=== PATIENT | male | born 1930 | race Caucasian/White ===

== ENCOUNTER 2017-02-15 13:53 | Emergency (ER) | payer MEDICARE ==
[2017-02-15 14:16] VITALS: BP 127/83; PULSE 69; RESP 16; TEMP 98.1
--- NOTE | 2017-02-15 14:35 | ED ---
General Adult HPI - General Chief complaint: Psychiatric Symptoms Stated complaint: Suicidal Time Seen by Provider: 02/15/17 14:33 Source: EMS, RN notes reviewed, old records reviewed Mode of arrival: EMS Limitations: no limitations - History of Present Illness Initial comments: This is an 86-year-old male in the ER for evaluation. Patient presents today for evaluation of sinus infection Niki nose cough and congestion. Patient has no other issues. Patient was sent to ER from urgent care for possible thoughts of grief and loss. Patient does admit to losing his a week ago and states he has been depressed. He does not want to kill himself is not suicidal denies drugs or alcohol abuse. Patient denies fevers no chest pain or shortness of breath. He was to cough and congestion, runny nose and stuffy nose. Review of Systems ROS Statement: Those systems with pertinent positive or pertinent negative responses have been documented in the HPI. ROS Other: All systems not noted in ROS Statement are negative. Past Medical History Past Medical History: No Reported History History of Any Multi-Drug Resistant Organisms: None Reported Past Surgical History: No Surgical Hx Reported Past Psychological History: No Psychological Hx Reported Smoking Status: Never smoker Past Alcohol Use History: Occasional Past Drug Use History: None Reported General Exam Limitations: no limitations General appearance: alert, in no apparent distress Head exam: Present: atraumatic, normocephalic, normal inspection Eye exam: Present: normal appearance, PERRL, EOMI. Absent: scleral icterus, conjunctival injection, periorbital swelling ENT exam: Present: normal exam, mucous membranes moist Neck exam: Present: normal inspection. Absent: tenderness, meningismus, lymphadenopathy Respiratory exam: Present: normal lung sounds bilaterally. Absent: respiratory distress, wheezes, rales, rhonchi, stridor Cardiovascular Exam: Present: regular rate, normal rhythm, normal heart sounds. Absent: systolic murmur, diastolic murmur, rubs, gallop, clicks GI/Abdominal exam: Present: soft, normal bowel sounds. Absent: distended, tenderness, guarding, rebound, rigid Extremities exam: Present: normal inspection, full ROM, normal capillary refill. Absent: tenderness, pedal edema, joint swelling, calf tenderness Back exam: Present: normal inspection Neurological exam: Present: alert, oriented X3, CN II-XII intact Psychiatric exam: Present: normal affect, normal mood Skin exam: Present: warm, dry, intact, normal color. Absent: rash Course Vital Signs 02/15/17 14:08 Temperature 98.1 F Pulse Rate 69 Respiratory 16 Rate Blood Pressure 127/83 O2 Sat by Pulse 97 Oximetry - Reevaluation(s) Reevaluation #1: 02/15/17 15:04 Patient's in no acute distress Medical Decision Making - Medical Decision Making 86 male year for evaluation of runny nose cough and congestion, patient given treatment for sinusitis, not homicidal or suicidal, no chest pain or shortness of breath. Patient can be discharged home Disposition Clinical Impression: Grief, Sinusitis Disposition: HOME SELF-CARE Condition: Good Instructions: Sinusitis (ED), Grief and Loss (ED) Referrals: None,Stated [Primary Care Provider] - 1-2 days
== END 2017-02-15 15:12 | disposition home or self-care (01) ==
LOC: EC 13:53
DX: F43.21 Adjustment disorder with depressed mood (principal); J32.9 Chronic sinusitis, unspecified; F32.9 Major depressive disorder, single episode, unspecified
CPT/HCPCS: 99284

== ENCOUNTER 2017-02-16 14:42 | Inpatient (IN) | payer MEDICARE, OTHER ==
[2017-02-16] MEDS ORDERED: SODIUM CHLORIDE 0.9% 500 ML IV STA (15:28)
--- NOTE | 2017-02-16 15:30 | ED ---
General Adult HPI - General Chief complaint: Upper Respiratory Infection Stated complaint: Fever Time Seen by Provider: 02/16/17 15:12 Source: patient, RN notes reviewed Mode of arrival: wheelchair Limitations: no limitations - History of Present Illness Initial comments: Patient's an 86-year-old male who presents emergency room today with a chief complaint of some symptoms of nausea over the past week. He states his symptoms started a week ago after his 's . He states she's feeling somewhat depressed. He states feels that it is better if he was not here. He states he is not having any thoughts of hurting himself. He states he is not suicidal. He states he has no family here in [place]. States remaining families down in [place]. Patient does admit that he's had a mild cough and was seen here in the emergency room yesterday. States she's been talking to his son on the phone and feels that he is congested and they feel that he should have an antibiotic for this. Patient denies any other complaints or symptoms at this time. Patient denies any recent fever, chills, shortness of breath, chest pain, back pain, abdominal pain, nausea or vomiting, numbness or tingling, dysuria or hematuria, constipation or diarrhea, headaches or visual changes, or any other complaints. - Related Data Home Medications Medication Instructions Recorded Confirmed Azithromycin [Zithromax Z-pack] See Taper PO DAILY 02/16/17 02/16/17 Allergies Allergy/AdvReac Type Severity Reaction Status Date / Time No Known Allergies Allergy Verified 02/16/17 16:45 Review of Systems ROS Statement: Those systems with pertinent positive or pertinent negative responses have been documented in the HPI. ROS Other: All systems not noted in ROS Statement are negative. Past Medical History Past Medical History: No Reported History Additional Past Medical History / Comment(s): hearing imparied History of Any Multi-Drug Resistant Organisms: None Reported Past Surgical History: No Surgical Hx Reported Past Psychological History: No Psychological Hx Reported Smoking Status: Never smoker Past Alcohol Use History: Occasional Past Drug Use History: None Reported General Exam - General Exam Comments Initial Comments: General: The patient is awake and alert, in no distress, and does not appear acutely ill. Eye: Pupils are equal, round and reactive to light, extra-ocular movements are intact. No nystagmus. There is normal conjunctiva bilaterally. No signs of icterus. Ears, nose, mouth and throat: There are moist mucous membranes and no oral lesions. Neck: The neck is supple, there is no tenderness or JVD. Cardiovascular: There is a regular rate and rhythm. No murmur, rub or gallop is appreciated. Respiratory: Lungs are clear to auscultation, respirations are non-labored, breath sounds are equal. No wheezes, stridor, rales, or rhonchi. Gastrointestinal: Soft, non-distended, non-tender abdomen without masses or organomegaly noted. There is no rebound or guarding present. No CVA tenderness. Bowel sounds are unremarkable. Musculoskeletal: Normal ROM, no tenderness. Strength 5/5. Sensation intact. Pulses equal bilaterally 2+. Neurological: A&O x 3. CN II-XII intact, There are no obvious motor or sensory deficits. Coordination appears grossly intact. Speech is normal. Skin: Skin is warm and dry and no rashes or lesions are noted. Psychiatric: Cooperative, appropriate mood & affect, normal judgment. Limitations: no limitations Course Vital Signs 02/16/17 02/16/17 02/16/17 14:43 15:17 16:41 Temperature 97.5 F L 100.2 F H 101.1 F H Pulse Rate 84 Respiratory 18 Rate Blood Pressure 153/67 O2 Sat by Pulse 95 Oximetry Medical Decision Making - Medical Decision Making Patient reexamined at this time shows no signs of distress. Does have a low- grade fever that begun here in the emergency room the 101.1F. Given Tylenol by mouth. Patient's chest x-rays negative. He does admit that he's had a little bit of a head cold. He does admit that he's had some nausea over the last week. Patient's urinalysis and blood work reviewed. No sign of infection but sodium low at 117. Patient states unaware of any history of this. Patient will be given dose of broad-spectrum antibiotics of Rocephin to cover for infection as there is no source at this time. Patient will be admitted for hypernatremia. Case was discussed in detail with attending physician Dr. Rojo. - Lab Data Result diagrams: 02/16/17 16:00 02/16/17 16:00 Lab Results 05/27/17 05/27/17 05/27/17 Range/Units 16:00 16:00 16:00 WBC 8.5 (3.8-10.6) k/uL RBC 4.58 (4.30-5.90) m/uL Hgb 14.1 (13.0-17.5) gm/dL Hct 39.4 (39.0-53.0) % MCV 86.0 (80.0-100.0) fL MCH 30.9 (25.0-35.0) pg MCHC 35.9 (31.0-37.0) g/dL RDW 13.3 (11.5-15.5) % Plt Count 217 (150-450) k/uL Neutrophils % 84 % Lymphocytes % 7 % Monocytes % 6 % Eosinophils % 2 % Basophils % 0 % Neutrophils # 7.1 (1.3-7.7) k/uL Lymphocytes # 0.6 L (1.0-4.8) k/uL Monocytes # 0.5 (0-1.0) k/uL Eosinophils # 0.1 (0-0.7) k/uL Basophils # 0.0 (0-0.2) k/uL PT 11.0 (9.0-12.0) sec INR 1.1 (<1.1) APTT 26.1 (22.0-30.0) sec Sodium 117 L* (137-145) mmol/L Potassium 4.3 (3.5-5.1) mmol/L Chloride 86 L (98-107) mmol/L Carbon Dioxide 24 (22-30) mmol/L Anion Gap 7 mmol/L BUN 10 (9-20) mg/dL Creatinine 0.70 (0.66-1.25) mg/dL Est GFR (MDRD) Af Amer >60 (>60 ml/min/1.73 sqM) Est GFR (MDRD) Non-Af >60 (>60 ml/min/1.73 sqM) Glucose 99 (74-99) mg/dL Calcium 8.6 (8.4-10.2) mg/dL Total Bilirubin 1.7 H (0.2-1.3) mg/dL AST 37 (17-59) U/L ALT 36 (21-72) U/L Alkaline Phosphatase 270 H (38-126) U/L Total Protein 6.3 (6.3-8.2) g/dL Albumin 3.8 (3.5-5.0) g/dL Urine Color Urine Appearance (Clear) Urine pH (5.0-8.0) Ur Specific [place] (1.001-1.035) Urine Protein (Negative) Urine Glucose (UA) (Negative) Urine Ketones (Negative) Urine Blood (Negative) Urine Nitrite (Negative) Urine Bilirubin (Negative) Urine Urobilinogen (<2.0) mg/dL Ur Leukocyte Esterase (Negative) Urine RBC (0-5) /hpf Urine WBC (0-5) /hpf Urine Mucus (None) /hpf Urine Opiates Screen (NotDetected) Ur Oxycodone Screen (NotDetected) Urine Methadone Screen (NotDetected) Ur Propoxyphene Screen (NotDetected) Ur Barbiturates Screen (NotDetected) U Tricyclic Antidepress (NotDetected) Ur Phencyclidine Scrn (NotDetected) Ur Amphetamines Screen (NotDetected) U Methamphetamines Scrn (NotDetected) U Benzodiazepines Scrn (NotDetected) Urine Cocaine Screen (NotDetected) U Marijuana (THC) Screen (NotDetected) 02/16/17 02/16/17 Range/Units 16:55 16:55 WBC (3.8-10.6) k/uL RBC (4.30-5.90) m/uL Hgb (13.0-17.5) gm/dL Hct (39.0-53.0) % MCV (80.0-100.0) fL MCH (25.0-35.0) pg MCHC (31.0-37.0) g/dL RDW (11.5-15.5) % Plt Count (150-450) k/uL Neutrophils % % Lymphocytes % % Monocytes % % Eosinophils % % Basophils % % Neutrophils # (1.3-7.7) k/uL Lymphocytes # (1.0-4.8) k/uL Monocytes # (0-1.0) k/uL Eosinophils # (0-0.7) k/uL Basophils # (0-0.2) k/uL PT (9.0-12.0) sec INR (<1.1) APTT (22.0-30.0) sec Sodium (137-145) mmol/L Potassium (3.5-5.1) mmol/L Chloride (98-107) mmol/L Carbon Dioxide (22-30) mmol/L Anion Gap mmol/L BUN (9-20) mg/dL Creatinine (0.66-1.25) mg/dL Est GFR (MDRD) Af Amer (>60 ml/min/1.73 sqM) Est GFR (MDRD) Non-Af (>60 ml/min/1.73 sqM) Glucose (74-99) mg/dL Calcium (8.4-10.2) mg/dL Total Bilirubin (0.2-1.3) mg/dL AST (17-59) U/L ALT (21-72) U/L Alkaline Phosphatase (38-126) U/L Total Protein (6.3-8.2) g/dL Albumin (3.5-5.0) g/dL Urine Color Yellow Urine Appearance Clear (Clear) Urine pH 6.5 (5.0-8.0) Ur Specific [place] 1.009 (1.001-1.035) Urine Protein Negative (Negative) Urine Glucose (UA) Negative (Negative) Urine Ketones 1+ H (Negative) Urine Blood Small H (Negative) Urine Nitrite Negative (Negative) Urine Bilirubin Negative (Negative) Urine Urobilinogen 2.0 (<2.0) mg/dL Ur Leukocyte Esterase Trace H (Negative) Urine RBC 4 (0-5) /hpf Urine WBC 1 (0-5) /hpf Urine Mucus Rare H (None) /hpf Urine Opiates Screen Not Detected (NotDetected) Ur Oxycodone Screen Not Detected (NotDetected) Urine Methadone Screen Not Detected (NotDetected) Ur Propoxyphene Screen Not Detected (NotDetected) Ur Barbiturates Screen Not Detected (NotDetected) U Tricyclic Antidepress Not Detected (NotDetected) Ur Phencyclidine Scrn Not Detected (NotDetected) Ur Amphetamines Screen Not Detected (NotDetected) U Methamphetamines Scrn Not Detected (NotDetected) U Benzodiazepines Scrn Not Detected (NotDetected) Urine Cocaine Screen Not Detected (NotDetected) U Marijuana (THC) Screen Not Detected (NotDetected) Disposition Clinical Impression: Hyponatremia, Fever Disposition: ADMITTED IP TO THIS [facility] Condition: Stable Referrals: None,Stated [Primary Care Provider] - 1-2 days Time of Disposition: 17:15
[2017-02-16 16:14] LABS: Basophils % (A) 0 %; CH 31.6; CHCM 36.8; Eosinophils # (A) 0.1 k/uL (0-0.7); Eosinophils % (A) 2 %; HCT 39.4 % (39.0-53.0); HDW 2.46; HGB 14.1 gm/dL (13.0-17.5); Luc # (Auto) 0.11; Luc % (Auto) 1; Lymphocytes # (A) 0.6 k/uL (1.0-4.8); Lymphocytes % (A) 7 %; MCH 30.9 pg (25.0-35.0); MCHC 35.9 g/dL (31.0-37.0); Mean Platelet Volume 6.7; Monocytes # (A) 0.5 k/uL (0-1.0); Monocytes % (A) 6 %; Neutrophils # (A) 7.1 k/uL (1.3-7.7); Neutrophils % (A) 84 %; RBC 4.58 m/uL (4.30-5.90); RDW 13.3 % (11.5-15.5); WBC 8.5 k/uL (3.8-10.6); WBC (Perox) 8.26
[2017-02-16 16:23] LABS: ALT 36 U/L (21-72); AST 37 U/L (17-59); Alkaline Phosphatase 270 U/L (38-126); Anion Gap 7 mmol/L; Blood Urea Nitrogen 10 mg/dL (9-20); Calcium 8.6 mg/dL (8.4-10.2); Carbon Dioxide 24 mmol/L (22-30); Chloride 86 mmol/L (98-107); Glucose 99 mg/dL (74-99); Non-African American GFR(MDRD) >60 (>60 ml/min/1.73 sqM); Potassium 4.3 mmol/L (3.5-5.1); Total Bilirubin 1.7 mg/dL (0.2-1.3); Total Protein 6.3 g/dL (6.3-8.2)
[2017-02-16 16:24] LABS: Sodium 117 mmol/L (137-145)
--- NOTE | 2017-02-16 16:28 | XR ---
EXAMINATION TYPE: XR chest 2V DATE OF EXAM: 02/16/2017 COMPARISON: NONE HISTORY: Cough TECHNIQUE: Frontal and lateral views of the chest are obtained on 4 images. FINDINGS: There is no focal air space opacity, pleural effusion, or pneumothorax seen. There are cor onary artery calcifications. There are prominent lung volumes. The cardiac silhouette size is within normal limits. The osseous structures are intact. IMPRESSION: No acute cardiopulmonary process.
[2017-02-16 16:33] LABS: INR 1.1 (<1.1); Partial Thromboplastin Time 26.1 sec (22.0-30.0)
[2017-02-16] MEDS ORDERED: ACETAMINOPHEN TAB 500 MG TAB PO STA (16:46)
[2017-02-16] MEDS ORDERED: SODIUM CHLORIDE 0.9% 1,000 ML IV STA ×3 (16:47→18:28)
[2017-02-16 17:05] LABS: Appearance,Urine Clear (Clear); Bilirubin,Urine Negative (Negative); Glucose,Urine (UA) Negative (Negative); Ketones,Urine 1+ (Negative); Leukocyte Esterase,Urine Trace (Negative); Mucus,Urine Rare /hpf; Nitrite,Urine Negative (Negative); PH, Urine 6.5 (5.0-8.0); Particle Count 2496; Protein,Urine Negative (Negative); RBC,Urine 4 /hpf (0-5); Specific Gravity,Urine 1.009 (1.001-1.035); UA Billing (MACRO vs. MICRO) MICRO; WBC,Urine 1 /hpf (0-5)
[2017-02-16] MEDS ORDERED: ACETAMINOPHEN TAB 325 MG TAB PO PRN (17:37)
[2017-02-16] MEDS ORDERED: ONDANSETRON 4 MG/2 ML VIAL IVP PRN (17:37)
[2017-02-16] MEDS ORDERED: LORazepam 2 MG/ML SYRINGE IV PRN (17:37)
[2017-02-16] MEDS ORDERED: NALOXONE 0.4 MG/ML 1 ML VIAL IV PRN (17:37)
[2017-02-16] MEDS ORDERED: SODIUM CHLORIDE 0.9% 1,000 ML IV ONE (17:37)
[2017-02-16] MEDS ORDERED: TEMAZEPAM 15 MG CAP PO PRN (21:38)
[2017-02-16] MEDS ORDERED: ALPRAZolam 0.25 MG TAB PO PRN (21:38)
[2017-02-16] MEDS: ESCITALOPRAM 10 MG TAB PO SCH (23:39)
[2017-02-17] MEDS: SODIUM CHLORIDE 0.9% 1,000 ML IV SCH ×2 (05:37→14:27)
[2017-02-17 07:26] LABS: Basophils % (A) 0 %; CH 31.4; CHCM 36.6; Eosinophils # (A) 0.2 k/uL (0-0.7); Eosinophils % (A) 3 %; HCT 37.5 % (39.0-53.0); HDW 2.52; HGB 13.7 gm/dL (13.0-17.5); Luc # (Auto) 0.16; Luc % (Auto) 2; Lymphocytes # (A) 1.1 k/uL (1.0-4.8); Lymphocytes % (A) 13 %; MCH 31.2 pg (25.0-35.0); MCHC 36.4 g/dL (31.0-37.0); MCV 85.9 fL (80.0-100.0); Mean Platelet Volume 6.5; Monocytes # (A) 0.5 k/uL (0-1.0); Monocytes % (A) 6 %; Neutrophils # (A) 6.5 k/uL (1.3-7.7); Neutrophils % (A) 76 %; RBC 4.37 m/uL (4.30-5.90); RDW 13.4 % (11.5-15.5); WBC 8.5 k/uL (3.8-10.6); WBC (Perox) 8.53
[2017-02-17 07:37] LABS: ALT 29 U/L (21-72); AST 33 U/L (17-59); Alkaline Phosphatase 250 U/L (38-126); Anion Gap 6 mmol/L; Blood Urea Nitrogen 7 mg/dL (9-20); Calcium 8.3 mg/dL (8.4-10.2); Carbon Dioxide 23 mmol/L (22-30); Chloride 93 mmol/L (98-107); Glucose 93 mg/dL (74-99); Non-African American GFR(MDRD) >60 (>60 ml/min/1.73 sqM); Potassium 4.1 mmol/L (3.5-5.1); Sodium 122 mmol/L (137-145); Total Bilirubin 1.4 mg/dL (0.2-1.3); Total Protein 6.2 g/dL (6.3-8.2)
[2017-02-17] MEDS: PANTOPRAZOLE 40 MG TABLET PO SCH (08:30)
[2017-02-17] MEDS: HEPARIN SODIUM,PORCINE 5,000 UNIT/ML 1 ML VIAL SQ SCH ×2 (09:05→20:06)
--- NOTE | 2017-02-17 12:25 | HP ---
DATE OF ADMISSION: CHIEF COMPLAINT: Weakness and hyponatremia. HISTORY OF PRESENT ILLNESS: This 86-year-old gentleman with a past medical history of no significant medical issues except hard of hearing, not being followed by primary care physician in the outpatient setting, was recently moved to [facility]. The patient apparently lost his who last week because of multiple complex medical issues and patient became sick, devastated and depressed. Patient apparently not eating well. The patient complains of weakness and tiredness. The patient went to [facility] and was admitted for further evaluation and treatment. Evaluation showed severe hyponatremia at 117. There is no history of fever, rigors. No history of headache, loss of consciousness, seizures at this time. The family is also concerned about the safety aspects also. PAST MEDICAL HISTORY: No significant cardiorespiratory illness. History of hard of hearing. Medications prior to admission include Zithromax taper. ALLERGIES: None. FAMILY HISTORY: History of hypertension. SOCIAL HISTORY: No history of smoking. No history of alcohol intake. Patient used to be a contractor. REVIEW OF SYSTEMS: ENT: Diminished vision, diminished hearing. The patient uses hearing aid. CARDIOVASCULAR: No angina, palpitations. RESPIRATORY: No cough. GI: No nausea. : No dysuria. NERVOUS SYSTEM: No numbness or weakness. ALLERGY/IMMUNOLOGY: No asthma or hayfever. MUSCULOSKELETAL: As mentioned earlier. HEMATOLOGY: No history of anemia. ENDOCRINE: No history of diabetes or hypothyroidism. CONSTITUTIONAL: As mentioned earlier. DERMATOLOGY: Negative. RHEUMATOLOGY: Negative. PSYCHIATRY: As mentioned earlier. PHYSICAL EXAMINATION: Patient is alert and oriented x3. Pulse is 70, blood pressure 154/81, respirations 16, temperature 97.9, pulse ox is 93% on room air. T-max 101.1. HEENT: Conjunctivae normal. Oral mucosa moist. NECK: No jugular venous distention. No carotid bruit. No lymph node enlargement. CARDIOVASCULAR: S1, S2. No S3, no S4. RESPIRATORY: Breath sounds diminished at the bases. No rhonchi, no crackles. ABDOMEN: Soft, nontender. No mass palpable. No hepatosplenomegaly. No ascites. LEGS: No edema, no swelling. NERVOUS SYSTEM: Higher function as mentioned. Moves all four limbs. No focal motor deficits. LYMPHATIC: No lymphadenopathy in the neck, axillae or groin. SKIN: No ulcer, rash or bleeding. JOINTS: No active deforming arthropathy. LABS: CBC within normal limits. INR 1.1. Sodium is 117, chloride is 86, total bilirubin is 1.7. UA noted. Drug screen is negative. The chest x-ray, no acute cardiopulmonary process. ASSESSMENT: 1. Severe hyponatremia possibly hypovolemic secondary to diminished p.o. intake. 2. Fever for evaluation. 3. Hypochloremia. 4. Increased bilirubin. 5. Increased alkaline phosphatase. 6. Hard of hearing. 7. FULL CODE. 8. Depression. RECOMMENDATIONS AND DISCUSSION: In is 86-year-old gentleman with a past medical history of multiple medical problems, will monitor the patient closely. Continue the current medications, continue the symptomatic treatment. Otherwise, at this time I recommend IV fluids at 100 mL/h. Monitor sodium closely. Encourage p.o. fluids and PT, OT evaluation and as well as for evaluation of gait dysfunction. Case management consultation regarding the home situation. Repeat labs will be ordered. Guarded prognosis because of multiple complex medical issues. Further recommendations to follow. I will also recommend the patient follow up with the primary physician in the outpatient setting also. See orders for further details. Discussed with the patient who understands and agrees. Will obtain set of cultures also.
[2017-02-17 12:40] VITALS: BMI 27.1
--- NOTE | 2017-02-17 16:39 | P.CN ---
Psychiatric Consult - . Consult:: Date of consultation: 02/17/2017 Reason for consultation: Depression Identifying data and history of present illness: The patient is a 86-year-old male who has been admitted to the medical floor because of hyponatremia and fever. The primary team consulted to rule out depression. As per the primary team the patient developed a complex medical issues and became sick devastated and depressed. Also it has been reported that the patient was not eating well and he complains of weakness and tiredness. His serum sodium was 117. There is no history of fever, headache, loss of consciousness, seizures, or any other medical problems. It has been addressed at that the family are concerned about the patient's safety. Patient was seen today for about 30 minutes. He denies any symptoms of depression including depressed mood, lack of motivation, hopelessness, sleep or appetite disturbances. The patient denies symptoms of anxiety including apprehension, racing thoughts, muscle tension, or panic attacks. The patient reported that he he feels frustrated and a little irritable because he still at the hospital and he wants to leave the hospital to go back to his life. The patient stated that he is frustrated because he is in the hospital and people talking too fast and he couldn't hear them well. Patient reports he used to cook for himself and taking care of all of his ADLs but for the past few months he was very busy visiting his in the hospital and responding to many forms about her disease and insurance besides his hearing aid is not functioning properly so he couldn't eat well as he used to do and that probably caused him to have sodium problem. Patient denies any thoughts, intentions or plans to hurt himself or end his life. The patient reported his one week ago and he feels sad about that but he was prepared because she was sick and at the hospital. The patient stated that he wanted to continue the rest of his life in peace and he feels healthy and capable of taking care of himself. Patient reported always has a very good sleep about 8 hours a night and he denies most appetite and he would eat as long as he had to time to prepare the food for himself. Patient reported that the plan is to go to stay with his son in [place] after discharge from the hospital. Past psychiatric history: The patient denies any history of psychiatric diagnosis, hospitalization, or treatment Substance use history: The patient denies any history of alcohol or substance use disorder Past medical history: No significant history of medical problems besides hard hearing and he is using hearing aids ALLERGY: No known drug ALLERGY Home medications: No home medications reported Family history of psychiatric illness: no family history of mental illness, suicidal, or substance use disorder reported Brief social history: The patient is 86-year-old, currently lives by himself after his one week ago. He reported has been for 35 years. He is currently retired and he used to work in construction. Mental status examination: Appearance: The patient appears his stated age, dressed in hospital gown, was seen in his bed Gait and posture: The patient was seen in his bed, no abnormal movements noticed Attitude and behavior: Patient was fully engaged, cooperative, was fair eye contact. Patient has difficulty to hear and I have to repeat this statement times No psychomotor agitation noticed The mood: Frustrated Affect: Full congruent to the mood Thought form: Preoccupied with discharge but linear and coherent Thought content: Non-delusional, denies suicidal or homicidal patient, intention or plan Perception: Denies any auditory or visual hallucinations Attention: No impairment. Orientation: Patient was fully oriented to time place person and situation. Insight: Patient has fair insight about his medical problems and his current symptoms Judgment: Patient has fair judgment about his treatment. Assessment: Adjustment disorder with anxious mood Grief Recommendations: Patient doesn't have criteria for depressive disorder or anxiety disorder. The patient might benefit from counseling and psychological support to address his adjustment with the loss of his . Range with the family for safe discharge. PT and or OT to assess patient for ability to take care of his ADLs 02/17/17 15:53 02/17/17 16:18
[2017-02-17] MEDS: ESCITALOPRAM 10 MG TAB PO SCH (20:06)
[2017-02-18] MEDS: SODIUM CHLORIDE 0.9% 1,000 ML IV SCH (05:47)
[2017-02-18 07:09] LABS: Anion Gap 5 mmol/L; Blood Urea Nitrogen 6 mg/dL (9-20); Calcium 8.2 mg/dL (8.4-10.2); Carbon Dioxide 24 mmol/L (22-30); Chloride 89 mmol/L (98-107); Glucose 92 mg/dL (74-99); Non-African American GFR(MDRD) >60 (>60 ml/min/1.73 sqM); Potassium 3.8 mmol/L (3.5-5.1)
[2017-02-18 07:12] LABS: Sodium 118 mmol/L (137-145)
[2017-02-18 07:26] LABS: Basophils % (A) 0 %; CH 31.7; CHCM 36.8; Eosinophils # (A) 0.2 k/uL (0-0.7); Eosinophils % (A) 3 %; HCT 34.3 % (39.0-53.0); HDW 2.55; Luc # (Auto) 0.16; Luc % (Auto) 3; Lymphocytes # (A) 0.6 k/uL (1.0-4.8); Lymphocytes % (A) 10 %; MCH 30.2 pg (25.0-35.0); MCHC 34.9 g/dL (31.0-37.0); MCV 86.4 fL (80.0-100.0); Mean Platelet Volume 6.5; Monocytes # (A) 0.6 k/uL (0-1.0); Monocytes % (A) 10 %; Neutrophils # (A) 4.6 k/uL (1.3-7.7); Neutrophils % (A) 75 %; RBC 3.97 m/uL (4.30-5.90); RDW 13.4 % (11.5-15.5); WBC 6.1 k/uL (3.8-10.6); WBC (Perox) 6.34
[2017-02-18] MEDS: HEPARIN SODIUM,PORCINE 5,000 UNIT/ML 1 ML VIAL SQ SCH ×2 (09:03→20:03)
[2017-02-18] MEDS: PANTOPRAZOLE 40 MG TABLET PO SCH (09:03)
--- NOTE | 2017-02-18 09:21 | PN ---
DATE OF SERVICE: 02/17/2017 This 86-year-old gentleman was admitted with weakness and diminished p.o. intake for the last several days, had severe hyponatremia. Patient apparently lost his recently and has been depressed ever since. Psychiatry has seen the patient and recommended to have an adjustment disorder with anxious mood and grief. No chest pain, no palpitation. No fever. On exam, alert and oriented x3. Pulse is 67, blood pressure 129/61, respirations 18, temperature 98 degrees, pulse ox 95% on room air. HEENT: Conjunctivae normal. NECK: No jugular venous distention. CARDIOVASCULAR: S1 and S2, muffled. RESPIRATORY: Breath sounds diminished at the bases. No rhonchi, no crackles. ABDOMEN: Soft, nontender. LEGS: No edema, no swelling. NERVOUS SYSTEM: Higher function as mentioned. Moves all four limbs. No focal motor deficits. LYMPHATIC: No lymphadenopathy in the neck, axillae or groin. SKIN: No ulcer, rash or bleeding. LABS: CBC within normal. Sodium 122 and total bilirubin is 1.4, albumin 3.4. UA noted. ASSESSMENT: 1. Severe hyponatremia, possibly secondary to hypovolemia secondary to diminished p.o. intake. 2. Fever for evaluation, improved. 3. Hypochloremia. 4. Increased bilirubin. 5. Increased alkaline phosphatase. 6. Hard of hearing. 7. Adjustment disorder with grief reaction. 8. FULL CODE. RECOMMENDATIONS AND DISCUSSION: In this 86-year-old gentleman who presented with multiple complex medical issues, we will monitor the patient closely, continue the current medications and symptomatic treatment. Otherwise, at this time I recommend to continue with IV hydration. Monitor sodium closely. Psychiatry input appreciated. Otherwise, guarded prognosis because of multiple complex medical issues and cultures are negative so far. Further recommendations to follow. skip pit worker and family independence case manager to follow the home situation.
--- NOTE | 2017-02-18 14:36 | P.NPCON ---
History of Present Illness - Reason for Consult hyponatremia - History of Present Illness Patient is a 86-year-old white male admitted to the hospital with complaints of extreme weakness fatigue feeling congested with some headaches. On admission he was noted to have a serum sodium of 117 mEq per liter. Patient did receive IV fluids and his serum sodium went up to 122 after which it went down back to 1 18 mg/L. His serum creatinine has been 0.7-0.5 mg/dL. Patient denies any prior history of hyponatremia. There is no significant pain. Urine osmolality and random urine sodium has been ordered and it is currently pending. BP has been 129-158 mmHg for systolic and diastolic at 68-74 mmHg. Review of Systems As per HPI other systems negative Past Medical History Past Medical History: No Reported History Additional Past Medical History / Comment(s): hearing imparied History of Any Multi-Drug Resistant Organisms: None Reported Past Surgical History: No Surgical Hx Reported Past Psychological History: No Psychological Hx Reported Smoking Status: Never smoker Past Alcohol Use History: Occasional Past Drug Use History: None Reported - Past Family History Father Family Medical History: Hypertension Mother Family Medical History: Hypertension Medications and Allergies Home Medications Medication Instructions Recorded Confirmed Type Azithromycin [Zithromax Z-pack] See Taper PO DAILY 02/16/17 02/16/17 History Allergies Allergy/AdvReac Type Severity Reaction Status Date / Time No Known Allergies Allergy Verified 02/16/17 16:45 Physical Exam Vitals: Vital Signs Temp Pulse Resp BP Pulse Ox 02/18/17 14:08 97.5 F L 73 18 168/77 94 L 02/18/17 07:00 98 F 67 16 129/57 93 L 02/17/17 21:57 98.7 F 71 16 133/68 95 02/17/17 16:00 79 18 02/17/17 15:00 98.0 F 79 18 158/74 95 Intake and Output 02/17/17 02/18/17 02/18/17 22:59 06:59 14:59 Intake Total 600 800 Output Total 800 800 300 Balance -200 0 -300 Intake: IV 300 800 Sodium Chloride 0.9% 1, 300 800 000 ml @ 100 mls/hr IV . Q10H LARA Rx#:[id number] Oral 300 Output: Urine 800 800 300 Other: Voiding Method Toilet Toilet Urinal Urinal # Voids 2 3 Weight 88.451 kg 88.451 kg Patient is comfortable awake is not in any acute distress. Blood pressure is 168/77 Heart rate 73/m. He is afebrile [place] examination of the heart S1 and S2 Examination lungs bilateral breath sounds are heard no crackles or wheezing is heard Abdomen is soft nontender Examination lower extremities shows no significant edema. Lab is grossly intact. Patient is moving all 4 extremities. Results - Lab Results Most recent lab results Calcium 8.2 mg/dL (8.4-10.2) L 02/18/17 06:25 02/18/17 06:25 02/18/17 06:25 Assessment and Plan Plan: Assessment 1. Hyponatremia appears to be euvolemic. Serum sodium worsened with normal saline administration suggesting high likelihood of SIADH. I will hold off on the normal saline for now and repeat another sodium level. Urine osmolality and random urine sodium is currently pending. Patient will be maintained on fluid restriction. 2. Adjustment disorder with anxious mood, status post evaluation by psychiatry as patient just lost his about 2 weeks ago. 3. Hypertension with regional high blood pressure readings. We'll continue to follow for now. At this time patient is not on any antihypertensive medications. Plan Hold off on IV fluids. Check random urine sodium and urine osmolality. Repeat serum sodium now. Maintain patient on fluid restriction. And increase oral intake Thank you for this consultation we'll continue to follow the patient with you during his hospitalization
[2017-02-18] MEDS ORDERED: FUROSEMIDE 10 MG/ML 2 ML VIAL IV ONE (16:11)
[2017-02-18] MEDS: ESCITALOPRAM 10 MG TAB PO SCH (20:03)
[2017-02-19] MEDS ORDERED: SODIUM CHLORIDE TAB 1 GM TAB PO STA (04:58)
--- NOTE | 2017-02-19 06:54 | PN ---
DATE OF SERVICE: 02/18/2017 This 86-year-old gentleman was admitted with severe hyponatremia, possibly thought to be secondary to hypovolemic hyponatremia. Sodium is 117 improved to 122 with 0.9 normal saline, but currently once again dropped to 118. Creatinine is within normal limits. Dr. Fitch was consulted and the possibility of SIADH is considered because of lack of consistent lack of improvement with 0.9 even though it improved initially. Repeat sodium was recommended by Dr. Fitch. Otherwise, the patient is closely monitored. PAST MEDICAL HISTORY: Reviewed. REVIEW OF SYSTEMS: CARDIOVASCULAR: No angina. RESPIRATORY: As mentioned earlier. GI: As mentioned earlier. GENITOURINARY: No dysuria. NERVOUS SYSTEM: No numbness. Current medications are reviewed and include: 1. Tylenol 650 q.6. 2. Xanax 0.25 t.i.d. 3. Lexapro 10 mg. 4. Heparin 5000 subcu b.i.d. 5. Ativan 0.5 q.6 p.r.n. 6. Narcan. 7. Zofran. 8. Protonix. 9. Restoril. PHYSICAL EXAMINATION: Patient is alert and oriented x3. Pulse 67, blood pressure 110/57, respirations 16, temperature 98 degrees, pulse ox 93% on room air. HEENT: Conjunctivae normal. Oral mucosa moist. NECK: No jugular venous distention. No carotid bruit. No lymph node enlargement. CARDIOVASCULAR: S1 and S2, muffled. RESPIRATORY: Breath sounds diminished at the bases. No rhonchi, no crackles. ABDOMEN: Soft, nontender. No mass palpable. LEGS: No edema, no swelling. NERVOUS SYSTEM: Higher function as mentioned. Moves all four limbs. No focal motor deficits. LYMPHATIC: No lymphadenopathy in the neck, axillae or groin. SKIN: No ulcer, rash or bleeding. LABS: WBC 6.1, hemoglobin is 12 and sodium is 118 and 115 and urine random sodium is 177. ASSESSMENT: 1. Severe hyponatremia, rule out SIADH with lack of improvement with 0.9. 2. Fever for evaluation, improved. 3. Hypochloremia. 4. Increased bilirubin. 5. Increased alkaline phosphatase. 6. Hard of hearing. 7. Adjustment disorder with grief reaction recently. 8. Mild hypoalbuminemia. 9. Increased alkaline phosphatase. 10. Increased total bilirubin. 11. Anemia, normocytic anemia, possibly nutritional anemia. 12. FULL CODE. RECOMMENDATIONS AND DISCUSSION: In this 86-year-old woman presented with multiple complex medical issues, we will monitor the patient closely. Continue the current medications and symptomatic treatment. Otherwise, at this time I would recommend closely follow with Dr. Fitch, possible 3% saline and continue to monitor. Guarded prognosis because of multiple complex medical issues. Further recommendations to follow. Prognosis guarded. Discussed with patient who understands.
[2017-02-19 07:39] LABS: Anion Gap 6 mmol/L; Blood Urea Nitrogen 7 mg/dL (9-20); Calcium 8.3 mg/dL (8.4-10.2); Carbon Dioxide 27 mmol/L (22-30); Chloride 85 mmol/L (98-107); Glucose 90 mg/dL (74-99); Non-African American GFR(MDRD) >60 (>60 ml/min/1.73 sqM)
[2017-02-19 07:48] LABS: Basophils # (A) 0.1 k/uL (0-0.2); Basophils % (A) 1 %; CH 31.8; CHCM 37.3; Eosinophils # (A) 0.2 k/uL (0-0.7); Eosinophils % (A) 3 %; HCT 35.5 % (39.0-53.0); HDW 2.55; HGB 12.6 gm/dL (13.0-17.5); Luc # (Auto) 0.14; Luc % (Auto) 3; Lymphocytes # (A) 0.7 k/uL (1.0-4.8); Lymphocytes % (A) 14 %; MCH 30.4 pg (25.0-35.0); MCHC 35.6 g/dL (31.0-37.0); MCV 85.5 fL (80.0-100.0); Mean Platelet Volume 6.7; Monocytes # (A) 0.5 k/uL (0-1.0); Monocytes % (A) 9 %; Neutrophils # (A) 3.6 k/uL (1.3-7.7); Neutrophils % (A) 71 %; RBC 4.16 m/uL (4.30-5.90); RDW 13.2 % (11.5-15.5); WBC 5.1 k/uL (3.8-10.6); WBC (Perox) 5.36
[2017-02-19 07:50] LABS: Sodium 118 mmol/L (137-145)
[2017-02-19] MEDS: PANTOPRAZOLE 40 MG TABLET PO SCH (08:44)
[2017-02-19] MEDS: HEPARIN SODIUM,PORCINE 5,000 UNIT/ML 1 ML VIAL SQ SCH (08:44)
[2017-02-19] MEDS ORDERED: SODIUM CHLORIDE TAB 1 GM TAB PO SCH ×2 (09:00→21:00)
[2017-02-19 09:42] VITALS: BP 129/59; PULSE 68; RESP 18; TEMP 97.4
--- NOTE | 2017-02-19 09:55 | P.PN ---
Subjective Patient is seen in follow-up for hyponatremia. His sodium level was 117 on admission and he was given 0.9 saline. Sodium level did come up to 122 however it then dropped to 115. He was started on salt tabs and also received a dose of Lasix. Sodium level this morning is 118. Patient is resting in bed. Denies any chest pain or shortness of breath. Admits to good urine output. No vomiting or diarrhea. Oral intake is fair. Vital signs are stable. General: The patient appeared well nourished and normally developed. HEENT: Head exam is unremarkable. Neck is without jugular venous distension. LUNGS: Lungs are clear to auscultation and percussion. Breath sounds decreased. HEART: Rate and Rhythm are regular. First and second heart sounds normal. No murmurs, rubs or gallops. ABDOMEN: Abdominal exam reveals normal bowel sounds. Non-tender and non- distended. No evidence of peritonitis. EXTREMITITES: No clubbing, cyanosis, or edema. Objective - Vital Signs Vital signs: Vital Signs Temp 97.4 F L 02/19/17 07:00 Pulse 68 02/19/17 07:00 Resp 18 02/19/17 07:00 BP 129/59 02/19/17 07:00 Pulse Ox 94 L 02/19/17 07:00 Intake & Output 02/18/17 02/19/17 02/19/17 18:59 06:59 18:59 Output Total 300 300 Balance -300 -300 Output: Urine 300 300 Other: Voiding Method Toilet Toilet Urinal Urinal # Voids 2 - Labs CBC & Chem 7: 02/19/17 06:52 02/19/17 06:52 Labs: Abnormal Lab Results - Last 24 Hours (Table) 02/18/17 02/18/17 02/18/17 Range/Units 12:55 14:33 20:45 RBC (4.30-5.90) m/uL Hgb (13.0-17.5) gm/dL Hct (39.0-53.0) % Lymphocytes # (1.0-4.8) k/uL Sodium 115 L* 116 L* (137-145) mmol/L Chloride (98-107) mmol/L BUN (9-20) mg/dL Creatinine (0.66-1.25) mg/dL Calcium (8.4-10.2) mg/dL Ur Random Sodium 177 H (30-90) mmol/L 02/19/17 02/19/17 02/19/17 Range/Units 03:48 06:52 06:52 RBC 4.16 L (4.30-5.90) m/uL Hgb 12.6 L (13.0-17.5) gm/dL Hct 35.5 L (39.0-53.0) % Lymphocytes # 0.7 L (1.0-4.8) k/uL Sodium 116 L* 118 L* (137-145) mmol/L Chloride 85 L (98-107) mmol/L BUN 7 L (9-20) mg/dL Creatinine 0.57 L (0.66-1.25) mg/dL Calcium 8.3 L (8.4-10.2) mg/dL Ur Random Sodium (30-90) mmol/L Microbiology - Last 24 Hours (Table) 02/16/17 17:25 Blood Culture - Preliminary Blood No Growth after 48 hours 02/16/17 22:45 Urine Culture - Final Urine,Clean Catch Assessment and Plan Plan: Assessment: #1. 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 Sodium level did drop with normal saline administration. Urine osmolality 504 and urine sodium of 177 also suggestive of SIADH. TSH and cortisol level normal. #2. Benign hypertension. #3. Adjustment disorder. Plan: Maintain 1.2 L fluid restriction. Increase sodium chloride tablets to 1 g twice daily. Add ensure with meals. Repeat sodium level at 11 AM. May require another dose of loop diuretic.
[2017-02-19] MEDS ORDERED: FUROSEMIDE 10 MG/ML 4 ML VIAL IV STA (12:16)
[2017-02-19] MEDS ORDERED: DEMECLOCYCLINE 150 MG TAB PO STA (12:26)
--- NOTE | 2017-02-19 16:49 | PN ---
DATE OF SERVICE: 02/19/2017 This 86-year-old gentleman was admitted with severe hyponatremia, also had persistent hyponatremia. Nephrology is following the patient closely. No chest pain or palpitation. No fever. On exam alert and oriented x2. Pulse is 68, blood pressure 129/59, respirations 18, temperature 97.4, pulse ox 94% on room air. HEENT: Conjunctivae normal. NECK: No jugular venous distention. CARDIOVASCULAR: S1 and S2. RESPIRATORY: Breath sounds diminished at the bases. No rhonchi, no crackles. ABDOMEN: Soft. LEGS: No edema, no swelling. NERVOUS SYSTEM: No focal deficits. LABS: WBC 5, hemoglobin 12.6. Sodium is 118 and 116. ASSESSMENT: 1. 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 2. Fever, improved. 3. Hypochloremia. 4. Increased bilirubin. 5. Increased alkaline phosphatase. 6. Hard of hearing. 7. Adjustment disorder with grief reaction recently. 8. Mild hypoalbuminemia. 9. Increased total bilirubin. 10. Anemia, normocytic anemia, possibly nutritional anemia. 11. FULL CODE. RECOMMENDATIONS AND DISCUSSION: I recommend to continue the current medications, continue monitoring and symptomatic treatment. Closely follow with Nephrology. Guarded prognosis because of multiple complex medical issues. Further recommendations to follow. See orders for details. Closely follow with Nephrology.
--- NOTE | 2017-02-20 08:08 | DS ---
DATE OF ADMISSION: 02/16/2017 DATE OF DISCHARGE: 02/19/2017 FINAL DIAGNOSES: 1. 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 2. Fever, improved. 3. Hypochloremia. 4. Increased bilirubin. 5. Increased alkaline phosphatase. 6. Hard of hearing. 7. Adjustment disorder with grief reaction recently. 8. Mild hypoalbuminemia. 9. Increased alkaline phosphatase. 10. Increased total bilirubin. 11. Anemia, normocytic anemia, possibly nutritional anemia. 12. FULL CODE. DISCHARGE DISPOSITION: The patient LEFT THE HOSPITAL AGAINST MEDICAL ADVICE. HISTORY OF PRESENT ILLNESS: This 86-year-old gentleman with a past medical history of multiple medical problems was admitted with hyponatremia, SIADH was suspected. Sodium is in the range 115, 116, 116, 118 and 118. Nephrology is following the patient closely but; however, the patient was not willing to stay. Patient is signing AGAINST MEDICAL ADVISE despite lengthy discussion by myself and as well as other multiple colleagues including staff nurses and as well as [employer] Supervisor and Registered Representative. Psychiatry has seen the patient and obtained the possibility of adjustment disorder with a grief reaction. Please see the multiple consultation notes for further information. Once again, the patient's prognosis was still guarded prognosis and the patient is fully aware.
== END 2017-02-19 13:00 | disposition left against medical advice (07) | DRG 645 ==
LOC: EC 14:42 → 5MS5E 18:31
PROVIDERS: ADMIT Hospitalist; ATTEND Hospitalist
DX: E22.2 Syndrome of inappropriate secretion of antidiuretic hormone (principal); E88.09 Other disorders of plasma-protein metabolism, not elsewhere classified; E87.8 Other disorders of electrolyte and fluid balance, not elsewhere classified; I10 Essential (primary) hypertension; R74.8 Abnormal levels of other serum enzymes; D53.9 Nutritional anemia, unspecified; F43.22 Adjustment disorder with anxiety; R50.9 Fever, unspecified; R26.9 Unspecified abnormalities of gait and mobility; E86.1 Hypovolemia; R11.0 Nausea; H54.7 Unspecified visual loss; H91.90 Unspecified hearing loss, unspecified ear; R53.1 Weakness; R51 Headache; J00 Acute nasopharyngitis [common cold]; R05 Cough; Z97.4 Presence of external hearing-aid; Z53.21 Procedure and treatment not carried out due to patient leaving prior to being seen by health care provider; Z71.3 Dietary counseling and surveillance; Z82.49 Family history of ischemic heart disease and other diseases of the circulatory system
CPT/HCPCS: 36415; 71020; 80048; 80053; 80306; 81001; 82533; 83935; 84295; 84300; 84443; 85025; 85610; 85730; 87040; 87086; 93005; 96361; 96365; 99285

== ENCOUNTER 2017-02-20 14:11 | Inpatient (IN) | payer MEDICARE, OTHER ==
[2017-02-20 14:40] LABS: Basophils % (A) 0 %; CH 31.8; CHCM 37.5; Eosinophils # (A) 0.1 k/uL (0-0.7); Eosinophils % (A) 1 %; HCT 34.6 % (39.0-53.0); HDW 2.59; HGB 12.4 gm/dL (13.0-17.5); Luc # (Auto) 0.15; Luc % (Auto) 3; Lymphocytes # (A) 0.7 k/uL (1.0-4.8); Lymphocytes % (A) 13 %; MCH 30.5 pg (25.0-35.0); MCHC 35.9 g/dL (31.0-37.0); MCV 85.1 fL (80.0-100.0); Mean Platelet Volume 6.8; Monocytes # (A) 0.4 k/uL (0-1.0); Monocytes % (A) 9 %; Neutrophils # (A) 3.7 k/uL (1.3-7.7); Neutrophils % (A) 73 %; RBC 4.07 m/uL (4.30-5.90); RDW 13.1 % (11.5-15.5); WBC 5.1 k/uL (3.8-10.6); WBC (Perox) 5.21
[2017-02-20 14:49] LABS: ALT 30 U/L (21-72); AST 31 U/L (17-59); Alkaline Phosphatase 211 U/L (38-126); Anion Gap 8 mmol/L; Blood Urea Nitrogen 8 mg/dL (9-20); Calcium 8.4 mg/dL (8.4-10.2); Carbon Dioxide 24 mmol/L (22-30); Chloride 85 mmol/L (98-107); Glucose 104 mg/dL (74-99); Magnesium 1.9 mg/dL (1.6-2.3); Non-African American GFR(MDRD) >60 (>60 ml/min/1.73 sqM); Potassium 3.9 mmol/L (3.5-5.1); Total Bilirubin 1.4 mg/dL (0.2-1.3); Total Protein 6.1 g/dL (6.3-8.2)
[2017-02-20 14:52] LABS: INR 1.1 (<1.1); Partial Thromboplastin Time 26.9 sec (22.0-30.0); Prothrombin Time 10.9 sec (9.0-12.0)
[2017-02-20 14:59] LABS: Sodium 117 mmol/L (137-145)
--- NOTE | 2017-02-20 15:00 | XR ---
EXAMINATION TYPE: XR chest 2V DATE OF EXAM: 02/20/2017 COMPARISON: Chest x-ray 4 days ago. HISTORY: Shortness breath and weakness for 3 days. TECHNIQUE: Frontal and lateral views of the chest are obtained. FINDINGS: There is chronic parenchymal change without suspicious focal air space opacity, pleural ef fusion, or pneumothorax seen. The cardiac silhouette size is within normal limits. The osseous str uctures are demineralized. High riding right humeral head suggests chronic rotator cuff tear. There a re bridging osteophytes in thoracic spine noted. IMPRESSION: Chronic parenchymal changes without acute pulmonary process. No significant change from prior.
--- NOTE | 2017-02-20 15:04 | ED ---
Weakness HPI - General Chief complaint: Weakness Stated complaint: WEAKNESS Time Seen by Provider: 02/20/17 14:15 Source: patient, EMS, RN notes reviewed Mode of arrival: EMS Limitations: no limitations - History of Present Illness Initial comments: This is an 86-year-old male who presents emergency department stating that he has generalized weakness. Patient states he came in approximate 3 days prior to this with the same symptoms admit him to the hospital told me he had low sodium however after 3 days of being a hospital he felt worse so he told them he wanted to go home and they discharged home. Patient states after being home for one day he is continuing to get worse so he decided to come to the emergency department. Patient denies any headache patient denies any numbness or focal weakness. Patient denies any lightheadedness or dizziness. Patient denies chest pain palpitations difficulty breathing or shortness of breath. Patient denies any abdominal pain patient denies nausea vomiting diarrhea. Patient states he does have a cough is nonproductive. Patient denies any recent fever or chills. Patient denies any calf pain or pedal edema - Related Data Home Medications Medication Instructions Recorded Confirmed No Known Home Medications [No 02/20/17 02/20/17 Known Home Medications] Allergies Allergy/AdvReac Type Severity Reaction Status Date / Time No Known Allergies Allergy Verified 02/20/17 15:20 Review of Systems ROS Statement: Those systems with pertinent positive or pertinent negative responses have been documented in the HPI. ROS Other: All systems not noted in ROS Statement are negative. Past Medical History Past Medical History: No Reported History Additional Past Medical History / Comment(s): hearing impaired History of Any Multi-Drug Resistant Organisms: None Reported Past Surgical History: No Surgical Hx Reported Past Psychological History: Depression Smoking Status: Never smoker Past Alcohol Use History: Occasional Past Drug Use History: None Reported - Past Family History Father Family Medical History: Hypertension Mother Family Medical History: Hypertension General Exam - General Exam Comments Initial Comments: GENERAL: Patient is well-developed and well-nourished. Patient is nontoxic and well- hydrated and is in mild distress. ENT: Neck is soft and supple. No significant lymphadenopathy is noted. Oropharynx is clear. Moist mucous membranes. Neck has full range of motion without eliciting any pain. EYES: The sclera were anicteric and conjunctiva were pink and moist. Extraocular movements were intact and pupils were equal round and reactive to light. Eyelids were unremarkable. PULMONARY: Patient has crackles in the left base CARDIOVASCULAR: There is a regular rate and rhythm without any murmurs gallops or rubs. ABDOMEN: Soft and nontender with normal bowel sounds. No palpable organomegaly was noted. There is no palpable pulsatile mass. SKIN: Skin is clear with no lesions or rashes and otherwise unremarkable. NEUROLOGIC: Patient is alert and oriented x3. Cranial nerves II through XII are grossly intact. Motor and sensory are also intact. Normal speech, volume and content. Symmetrical smile. MUSCULOSKELETAL: Normal extremities with adequate strength and full range of motion. LYMPHATICS: No significant lymphadenopathy is noted PSYCHIATRIC: Normal psychiatric evaluation. Limitations: no limitations Course Vital Signs 02/20/17 14:18 Temperature 98.1 F Pulse Rate 66 Respiratory 16 Rate Blood Pressure 140/65 O2 Sat by Pulse 97 Oximetry Medical Decision Making - Medical Decision Making EKG shows normal sinus rhythm at 60 bpm SD interval is 176 dresses 98 QT interval 456 QTC is 456. Patient's EKG shows no ST segment elevation or T-wave abdomen is noted. Chest x-ray shows no acute abnormality. Patient's sodium is 117. - Lab Data Result diagrams: 02/20/17 14:24 02/20/17 14:24 Lab Results 02/20/17 02/20/17 02/20/17 Range/Units 14:24 14:24 14:24 WBC 5.1 (3.8-10.6) k/uL RBC 4.07 L (4.30-5.90) m/uL Hgb 12.4 L (13.0-17.5) gm/dL Hct 34.6 L (39.0-53.0) % MCV 85.1 (80.0-100.0) fL MCH 30.5 (25.0-35.0) pg MCHC 35.9 (31.0-37.0) g/dL RDW 13.1 (11.5-15.5) % Plt Count 264 (150-450) k/uL Neutrophils % 73 % Lymphocytes % 13 % Monocytes % 9 % Eosinophils % 1 % Basophils % 0 % Neutrophils # 3.7 (1.3-7.7) k/uL Lymphocytes # 0.7 L (1.0-4.8) k/uL Monocytes # 0.4 (0-1.0) k/uL Eosinophils # 0.1 (0-0.7) k/uL Basophils # 0.0 (0-0.2) k/uL PT (9.0-12.0) sec INR (<1.1) APTT (22.0-30.0) sec Sodium 117 L* (137-145) mmol/L Potassium 3.9 (3.5-5.1) mmol/L Chloride 85 L (98-107) mmol/L Carbon Dioxide 24 (22-30) mmol/L Anion Gap 8 mmol/L BUN 8 L (9-20) mg/dL Creatinine 0.59 L (0.66-1.25) mg/dL Est GFR (MDRD) Af Amer >60 (>60 ml/min/1.73 sqM) Est GFR (MDRD) Non-Af >60 (>60 ml/min/1.73 sqM) Glucose 104 H (74-99) mg/dL Calcium 8.4 (8.4-10.2) mg/dL Magnesium 1.9 (1.6-2.3) mg/dL Total Bilirubin 1.4 H (0.2-1.3) mg/dL AST 31 (17-59) U/L ALT 30 (21-72) U/L Alkaline Phosphatase 211 H (38-126) U/L Total Creatine Kinase 118 (55-170) U/L CK-MB (CK-2) 2.1 (0.0-2.4) ng/mL CK-MB (CK-2) Rel Index 1.8 Troponin I <0.012 (0.000-0.034) ng/mL NT-Pro-B Natriuret Pep pg/mL Total Protein 6.1 L (6.3-8.2) g/dL Albumin 3.4 L (3.5-5.0) g/dL 02/20/17 02/20/17 Range/Units 14:24 14:24 WBC (3.8-10.6) k/uL RBC (4.30-5.90) m/uL Hgb (13.0-17.5) gm/dL Hct (39.0-53.0) % MCV (80.0-100.0) fL MCH (25.0-35.0) pg MCHC (31.0-37.0) g/dL RDW (11.5-15.5) % Plt Count (150-450) k/uL Neutrophils % % Lymphocytes % % Monocytes % % Eosinophils % % Basophils % % Neutrophils # (1.3-7.7) k/uL Lymphocytes # (1.0-4.8) k/uL Monocytes # (0-1.0) k/uL Eosinophils # (0-0.7) k/uL Basophils # (0-0.2) k/uL PT 10.9 (9.0-12.0) sec INR 1.1 (<1.1) APTT 26.9 (22.0-30.0) sec Sodium (137-145) mmol/L Potassium (3.5-5.1) mmol/L Chloride (98-107) mmol/L Carbon Dioxide (22-30) mmol/L Anion Gap mmol/L BUN (9-20) mg/dL Creatinine (0.66-1.25) mg/dL Est GFR (MDRD) Af Amer (>60 ml/min/1.73 sqM) Est GFR (MDRD) Non-Af (>60 ml/min/1.73 sqM) Glucose (74-99) mg/dL Calcium (8.4-10.2) mg/dL Magnesium (1.6-2.3) mg/dL Total Bilirubin (0.2-1.3) mg/dL AST (17-59) U/L ALT (21-72) U/L Alkaline Phosphatase (38-126) U/L Total Creatine Kinase (55-170) U/L CK-MB (CK-2) (0.0-2.4) ng/mL CK-MB (CK-2) Rel Index Troponin I (0.000-0.034) ng/mL NT-Pro-B Natriuret Pep 288 pg/mL Total Protein (6.3-8.2) g/dL Albumin (3.5-5.0) g/dL Disposition Clinical Impression: Hyponatremia, Generalized weakness Disposition: ADMITTED IP TO THIS [facility] Referrals: None,Stated [Primary Care Provider] - 1-2 days Time of Disposition: 15:27
[2017-02-20 15:09] LABS: Creatine Kinase 118 U/L (55-170)
[2017-02-20 15:20] LABS: Creatine Kinase MB 2.1 ng/mL (0.0-2.4); Troponin I <0.012 ng/mL (0.000-0.034)
[2017-02-20] MEDS ORDERED: SODIUM CHLORIDE 0.9% 500 ML IV ONE (15:27)
[2017-02-20] MEDS ORDERED: SODIUM CHLORIDE 0.9% 1,000 ML IV ONE (15:27)
[2017-02-21] MEDS: SODIUM CHLORIDE TAB 1 GM TAB PO SCH ×3 (09:31→21:11)
[2017-02-21 09:32] LABS: Basophils % (A) 0 %; CH 31.7; CHCM 37.2; Eosinophils # (A) 0.1 k/uL (0-0.7); Eosinophils % (A) 2 %; HCT 38.2 % (39.0-53.0); HDW 2.77; HGB 13.5 gm/dL (13.0-17.5); Luc # (Auto) 0.14; Luc % (Auto) 3; Lymphocytes # (A) 0.8 k/uL (1.0-4.8); Lymphocytes % (A) 15 %; MCH 30.3 pg (25.0-35.0); MCHC 35.4 g/dL (31.0-37.0); MCV 85.6 fL (80.0-100.0); Mean Platelet Volume 6.5; Monocytes # (A) 0.4 k/uL (0-1.0); Monocytes % (A) 8 %; Neutrophils # (A) 3.9 k/uL (1.3-7.7); Neutrophils % (A) 72 %; RBC 4.46 m/uL (4.30-5.90); RDW 13.1 % (11.5-15.5); WBC 5.4 k/uL (3.8-10.6); WBC (Perox) 5.92
[2017-02-21 09:40] LABS: Anion Gap 8 mmol/L; Blood Urea Nitrogen 6 mg/dL (9-20); Calcium 8.6 mg/dL (8.4-10.2); Carbon Dioxide 25 mmol/L (22-30); Chloride 91 mmol/L (98-107); Glucose 108 mg/dL (74-99); Non-African American GFR(MDRD) >60 (>60 ml/min/1.73 sqM); Potassium 3.6 mmol/L (3.5-5.1); Sodium 124 mmol/L (137-145)
[2017-02-21] MEDS ORDERED: Potassium Replacement Protocol 1 EACH MISC MISCELLANE PRN (10:01)
[2017-02-21] MEDS ORDERED: SODIUM CHLORIDE 0.9% 1,000 ML IV SCH (10:15)
[2017-02-21] MEDS ORDERED: POTASSIUM CHLORIDE ER 20 MEQ TAB.ER PO SCH (11:00)
[2017-02-21] MEDS: DOCUSATE 100 MG CAP PO SCH (16:16)
[2017-02-21 16:31] LABS: Appearance,Urine Clear (Clear); Bilirubin,Urine Negative (Negative); Glucose,Urine (UA) Negative (Negative); Ketones,Urine Negative (Negative); Leukocyte Esterase,Urine Negative (Negative); Nitrite,Urine Negative (Negative); PH, Urine 7.5 (5.0-8.0); Protein,Urine Negative (Negative); Specific Gravity,Urine 1.009 (1.001-1.035); UA Billing (MACRO vs. MICRO) CHEM; Urobilinogen,Urine <2.0 mg/dL (<2.0)
[2017-02-21] MEDS ORDERED: MELATONIN 3 MG TABLET PO PRN (21:11)
[2017-02-22 06:40] LABS: Basophils % (A) 0 %; CH 31.5; CHCM 37.5; Eosinophils # (A) 0.2 k/uL (0-0.7); Eosinophils % (A) 3 %; HCT 36.1 % (39.0-53.0); HDW 2.78; HGB 12.9 gm/dL (13.0-17.5); Hyperchromasia Slight; Luc % (Auto) 3; Lymphocytes # (A) 1.2 k/uL (1.0-4.8); Lymphocytes % (A) 20 %; MCH 30.1 pg (25.0-35.0); MCHC 35.8 g/dL (31.0-37.0); Mean Platelet Volume 6.3; Monocytes # (A) 0.5 k/uL (0-1.0); Monocytes % (A) 8 %; Neutrophils # (A) 3.8 k/uL (1.3-7.7); Neutrophils % (A) 65 %; RBC 4.29 m/uL (4.30-5.90); RDW 12.9 % (11.5-15.5); WBC 5.9 k/uL (3.8-10.6)
[2017-02-22 06:52] LABS: Anion Gap 6 mmol/L; Blood Urea Nitrogen 6 mg/dL (9-20); Calcium 8.7 mg/dL (8.4-10.2); Carbon Dioxide 26 mmol/L (22-30); Chloride 90 mmol/L (98-107); Glucose 86 mg/dL (74-99); Non-African American GFR(MDRD) >60 (>60 ml/min/1.73 sqM); Potassium 4.4 mmol/L (3.5-5.1); Sodium 122 mmol/L (137-145)
--- NOTE | 2017-02-22 07:34 | HP ---
DATE OF ADMISSION: REASON FOR ADMISSION: Generalized weakness. HISTORY OF PRESENT ILLNESS: This is an 86-year-old gentleman who was recently in the hospital and left against medical advice after being diagnosed with hyponatremia that was symptomatic. 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 Patient, however, left AGAINST MEDICAL ADVICE. Patient does not have a significant past medical history. Patient apparently lost his spouse about 2 weeks ago. Has had some issues of feeling down including poor oral intake and lack of sleep as well. At that time, the patient's urine osmolarity was ( ), serum osmolarity was about 180 and serum sodium around ( ) consistent with SIADH in an euvolemic patient. Patient was admitted again because was having similar symptoms overnight. Patient was given about a liter of crystalloids. This a.m. patient's serum sodium improved from 117 to 124. Today on evaluation, patient states to be feeling better, was able to ambulate without much difficulty. Denies having any headaches, blurry vision, seizure-like activity, nausea, vomiting, diarrhea, urinary urgency or frequency. Did tolerate his lunch in the afternoon. Fourteen-point review of systems was done; none pertinent other than what was mentioned above. PAST MEDICAL HISTORY: None. PAST SURGICAL HISTORY: None. MEDICATIONS: None. ALLERGIES: No known drug allergies. FAMILY HISTORY: Not pertinent to the current admission. SOCIAL HISTORY: Lifelong nonsmoker. No illicit drug use or tobacco use. PHYSICAL EXAM: VITALS: Temperature is within normal limits. Heart rate 68, blood pressure 145/69, saturating 98% on room air. GENERALLY: Patient appears to be alert, oriented x3. HEENT: The pupils are equal and reactive to light and accommodation. HEART: S1, S2 present. No murmur appreciated. LUNGS: Good air entry. No wheezing or rhonchi noted. ABDOMINAL EXAM: Soft, nontender, no organomegaly appreciated. GENITOURINARY: No Rai in place. EXTREMITIES: Pulses can be palpated distally. Denies any tenderness on gross palpation. SKIN: On a gross skin exam does not appear to have any purpura or any skin rashes that were noted. NEUROLOGICALLY: Grossly cranial nerves 2-12 intact. No motor or sensory deficits noted. LABORATORY DATA: Today includes to hemoglobin 13.5, hematocrit 38.2, white count 5.4, platelets of 298. Sodium 124, potassium 3.6, chloride 91, bicarb 6, creatinine 0.65, TSH on previous admission was 0.917. Cortisol was 10, which is appropriate with the patient's blood pressure. As discussed, previous urine osmolarity and serum osmolarity are consistent with SIADH. ASSESSMENT AND PLAN: 1. 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 2. Constipation. PLAN: Will start the patient on a 1200 mL fluid restriction and high protein diet. Will discontinue IV fluids at this time. Will start the patient on sodium chloride 1 gram p.o. t.i.d. Patient was also started to be on bowel regimen with Colace at this time. If patient's sodium is greater than 127, if patient is able to ambulate, will need to consider discharging the patient home. There is some family request that patient should be placed. However, patient appears to be going through normal grief. Does not seem to have any suicidal or homicidal ideation at this time. Patient appears to be appropriate. It does get tearful discussing his 's recent demise. However, this is normal grieving. There is no need for a psychiatric consult. Will hold off on nephrology as well as the diagnosis made sodium is improving. A repeat sodium level in the a.m. Will follow. [place]
[2017-02-22] MEDS ORDERED: SODIUM CHLORIDE 0.9% 1,000 ML IV STA (08:10)
[2017-02-22] MEDS ORDERED: SODIUM CHLORIDE 0.9% 1,000 ML IV SCH (08:15)
[2017-02-22] MEDS: DOCUSATE 100 MG CAP PO SCH (09:27)
[2017-02-22] MEDS: SODIUM CHLORIDE TAB 1 GM TAB PO SCH ×3 (09:27→21:43)
[2017-02-22] MEDS ORDERED: SODIUM CHLORIDE 3%(HYPERTONIC) 500 ML IV SCH ×2 (10:30→23:06)
[2017-02-22] MEDS ORDERED: FUROSEMIDE 10 MG/ML 4 ML VIAL IV STA (14:52)
[2017-02-22] MEDS: POLYETHYLENE GLYCOL 3350 17 GM POWD.PACK PO SCH ×3 (15:10→17:25)
--- NOTE | 2017-02-22 15:59 | P.PN ---
Subjective HISTORY OF PRESENT ILLNESS: This is an 86-year-old gentleman who was recently in the hospital and left against medical advice after being diagnosed with hyponatremia that was symptomatic. 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 Patient, however, left AGAINST MEDICAL ADVICE. Patient does not have a significant past medical history. Patient apparently lost his spouse about 2 weeks ago. Has had some issues of feeling down including poor oral intake and lack of sleep as well. At that time, the patient's urine osmolarity was ( ), serum osmolarity was about 180 and serum sodium around ( ) consistent with SIADH in an euvolemic patient. Patient was admitted again because was having similar symptoms overnight. Patient was given about a liter of crystalloids. This a.m. patient's serum sodium improved from 117 to 124. Today on evaluation, patient states to be feeling better, was able to ambulate without much difficulty. Denies having any headaches, blurry vision, seizure-like activity, nausea, vomiting, diarrhea, urinary urgency or frequency. Did tolerate his lunch in the afternoon. 02/22/2017 States to be doing well denies having any complaints. His generalized weakness is somewhat improved PHYSICAL EXAM: GENERALLY: Patient appears to be alert, oriented x3. HEENT: The pupils are equal and reactive to light and accommodation. HEART: S1, S2 present. No murmur appreciated. LUNGS: Good air entry. No wheezing or rhonchi noted. ABDOMINAL EXAM: Soft, nontender, no organomegaly appreciated. GENITOURINARY: No Rai in place. EXTREMITIES: Pulses can be palpated distally. Denies any tenderness on gross palpation. SKIN: On a gross skin exam does not appear to have any purpura or any skin rashes that were noted. NEUROLOGICALLY: Grossly cranial nerves 2-12 intact. No motor or sensory deficits noted. Objective - Vital Signs Vital signs: Vital Signs Temp 97.1 F L 02/22/17 09:09 Pulse 65 02/22/17 11:00 Resp 18 02/22/17 11:00 BP 152/70 02/22/17 11:00 Pulse Ox 97 02/22/17 09:09 Intake & Output 02/21/17 02/22/17 02/22/17 18:59 06:59 18:59 Intake Total 1120 0 360 Output Total 950 750 920 Balance 170 -750 -560 Weight 82.7 kg Intake: Intake, IV Titration 500 0 Amount Sodium Chloride 0.9% 1, 500 0 000 ml @ 100 mls/hr IV . Q10H [facility] Rx#:[id number] Oral 620 360 Output: Urine 950 750 920 Other: Voiding Method Urinal Urinal # Voids 1 4 # Bowel Movements 0 0 - Labs CBC & Chem 7: 02/22/17 05:33 02/22/17 13:25 Labs: Abnormal Lab Results - Last 24 Hours (Table) 02/22/17 02/22/17 02/22/17 Range/Units 05:33 05:33 05:33 RBC 4.29 L (4.30-5.90) m/uL Hgb 12.9 L (13.0-17.5) gm/dL Hct 36.1 L (39.0-53.0) % Sodium 122 L (137-145) mmol/L Chloride 90 L (98-107) mmol/L BUN 6 L (9-20) mg/dL Creatinine 0.60 L (0.66-1.25) mg/dL Osmolality 249 L* (280-301) mosm/kg Ur Random Sodium (30-90) mmol/L 02/22/17 02/22/17 Range/Units 11:39 13:25 RBC (4.30-5.90) m/uL Hgb (13.0-17.5) gm/dL Hct (39.0-53.0) % Sodium 122 L (137-145) mmol/L Chloride (98-107) mmol/L BUN (9-20) mg/dL Creatinine (0.66-1.25) mg/dL Osmolality (280-301) mosm/kg Ur Random Sodium 193 H (30-90) mmol/L Microbiology - Last 24 Hours (Table) 02/20/17 15:06 Blood Culture - Preliminary Blood No Growth after 24 hours Assessment and Plan Plan: ASSESSMENT AND PLAN: 1. 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 2. Constipation. Plan We'll have nephrology on consult. Patient's hyponatremia is refractory. We'll likely need 3% saline We'll start MiraLAX as well Patient's repeat serum osmolarity is 240 consistent with SIADH .
--- NOTE | 2017-02-22 16:14 | CONS ---
DATE OF CONSULTATION: 02/22/17 REASON FOR CONSULTATION: Hyponatremia. HISTORY OF PRESENT ILLNESS: Patient is an 86-year-old male who was admitted to the hospital initially on 02/17/2017. He was evaluated for hyponatremia at that time and was found to have SIADH. Patient, however, left AGAINST MEDICAL ADVICE on 02/19/2017, and he was readmitted the next day. Serum sodium was 117. It seemed to improve initially with saline and then worsened at 122 mEq/liter. Urine osmolality was at 446 and 497, and on the last visit his urine osmolality was around 500. Patient's serum sodium had very clearly worsened with normal saline administration. He lost his about 3 weeks ago and has been adjusting to the loss. He has been quite upset about it. He has no other symptoms of nausea, vomiting, tingling, weakness, dizziness, lightheadedness. PAST MEDICAL HISTORY: No major past medical history recorded. Patient's blood pressure had been slightly high on his last admission, but he has not been on any antihypertensive medications previously. MEDICATIONS AT HOME: None. ALLERGIES: NONE. SOCIAL HISTORY: Negative for smoking, drug abuse or alcohol abuse. REVIEW OF SYSTEMS: As per HPI. Other systems negative. On examination, patient is comfortable, awake. Blood pressure is 152/70, heart rate 65 per minute. He is afebrile. EXAMINATION OF THE HEART: S1 and S2. EXAMINATION OF THE LUNGS: Bilateral breath sounds are heard. ABDOMEN: Soft, nontender. Examination of lower extremities shows no significant edema. FISHER SPEAR exam is grossly intact. Patient is moving all 4 extremities. Labs show sodium 122, potassium 4.4, chloride 90, BUN 6, creatinine 0.6. Hemoglobin 12.9 g/dL. ASSESSMENT: 1. Euvolemic hyponatremia secondary to syndrome of inappropriate antidiuretic hormone. IV fluids are Hep-Locked and patient will be started on 3% saline. I will recheck another sodium in about 4 hours. He may need a dose of IV Lasix. Currently patient is maintained on sodium chloride, which I will decrease to only once a day. His blood pressure has been on the high side for at least a few readings in the hospital. Patient will also be started on demeclocycline. If his serum sodium does not improve further, he will need Tolvaptan. 2. 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 PLAN: Start 3% saline. Repeat sodium in 4 hours. Add demeclocycline. Encourage increased oral intake, particularly protein. We will continue to follow the patient. Thank you for this consultation. [place]
[2017-02-22] MEDS: DEMECLOCYCLINE 150 MG TAB PO SCH (21:20)
[2017-02-22] MEDS ORDERED: FUROSEMIDE 10 MG/ML 2 ML VIAL IV ONE (23:05)
[2017-02-23 05:36] LABS: Basophils % (A) 1 %; CH 31.2; Eosinophils # (A) 0.1 k/uL (0-0.7); Eosinophils % (A) 2 %; HCT 38.3 % (39.0-53.0); HDW 2.64; HGB 13.5 gm/dL (13.0-17.5); Luc # (Auto) 0.23; Luc % (Auto) 4; Lymphocytes % (A) 17 %; MCH 30.7 pg (25.0-35.0); MCHC 35.3 g/dL (31.0-37.0); MCV 87.1 fL (80.0-100.0); Mean Platelet Volume 6.2; Monocytes # (A) 0.5 k/uL (0-1.0); Monocytes % (A) 9 %; Neutrophils # (A) 3.9 k/uL (1.3-7.7); Neutrophils % (A) 67 %; RDW 13.4 % (11.5-15.5); WBC 5.9 k/uL (3.8-10.6); WBC (Perox) 5.77
[2017-02-23 05:51] LABS: Anion Gap 7 mmol/L; Blood Urea Nitrogen 11 mg/dL (9-20); Calcium 8.8 mg/dL (8.4-10.2); Carbon Dioxide 26 mmol/L (22-30); Chloride 95 mmol/L (98-107); Glucose 89 mg/dL (74-99); Magnesium 1.9 mg/dL (1.6-2.3); Non-African American GFR(MDRD) >60 (>60 ml/min/1.73 sqM); Phosphorous 3.7 mg/dL (2.5-4.5); Potassium 3.9 mmol/L (3.5-5.1); Sodium 128 mmol/L (137-145)
[2017-02-23] MEDS ORDERED: Potassium Replacement Protocol 1 EACH MISC MISCELLANE PRN (06:08)
[2017-02-23] MEDS ORDERED: Magnesium Replacement Protocol 1 EACH MISC MISCELLANE PRN (06:10)
[2017-02-23] MEDS ORDERED: POTASSIUM CHLORIDE ER 20 MEQ TAB.ER PO SCH (07:00)
[2017-02-23] MEDS: MAGNESIUM SULFATE-D5W PMX 1 GM in DEXTROSE/WATER 1 100ML.BAG IVPB SCH ×2 (08:31→09:50)
[2017-02-23] MEDS: DEMECLOCYCLINE 150 MG TAB PO SCH ×2 (08:36→21:24)
[2017-02-23] MEDS: PANTOPRAZOLE 40 MG/10 ML VIAL IV SCH (08:37)
[2017-02-23] MEDS: POLYETHYLENE GLYCOL 3350 17 GM POWD.PACK PO SCH (08:37)
[2017-02-23] MEDS: SODIUM CHLORIDE TAB 1 GM TAB PO SCH (08:37)
[2017-02-23] MEDS: DOCUSATE 100 MG CAP PO SCH (08:37)
--- NOTE | 2017-02-23 09:00 | P.PN ---
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 He is been treated with 3% saline. Subjectively he is doing very well has no complaints at all. Denies any dizziness, headache fever chills cough shortness of breath nausea vomiting diarrhea. Appetite is fair. No abdominal pain. He was started on 3% saline yesterday at around 11 AM and sodium has slowly improved from 122-128 this morning. Should be noted that he was recently admitted and discharged AGAINST MEDICAL ADVICE for the same problem off hyponatremia. This is deemed to be fromdepression because of recent loss of his spouse. He has been seen by his with anxiety increased. He was not on any medications at home. Objective - Vital Signs Vital signs: Vital Signs Temp 98.1 F 02/23/17 00:00 Pulse 61 02/23/17 06:00 Resp 12 02/23/17 06:00 BP 137/61 02/23/17 06:00 Pulse Ox 95 02/23/17 06:00 Intake & Output 02/22/17 02/23/17 02/23/17 18:59 06:59 18:59 Intake Total 480 440 Output Total 2070 700 Balance -1590 -260 Weight 82 kg Intake: Intake, IV Titration 120 440 Amount Sodium Chloride 3%( 120 120 Hypertonic) 500 ml @ 30 mls/hr IV .[id number] [facility] Rx #:[id number] Sodium Chloride 3%( 320 Hypertonic) 500 ml @ 40 mls/hr IV .[id number] [facility] Rx #:[id number] Oral 360 Output: Urine 2070 700 Other: Voiding Method Urinal Urinal # Voids 1 # Bowel Movements 0 0 On examination is awake alert oriented. No asterixis. Blood pressure 156/71 with heart rate of 72 supine and on standing up. A chin exam no JVP neck is supple no facial asymmetry no lymphadenopathy. Lungs are clear to auscultation good air entry bilaterally Heart sounds are unremarkable for any murmur rub gallop Abdomen soft nontender Extremity exam was no edema Neurologically awake alert oriented no asterixis no focal motor deficit - Labs CBC & Chem 7: 02/23/17 05:20 02/23/17 05:20 Labs: Abnormal Lab Results - Last 24 Hours (Table) 02/22/17 02/22/17 02/22/17 Range/Units 05:33 11:39 13:25 Hct (39.0-53.0) % Sodium 122 L (137-145) mmol/L Chloride (98-107) mmol/L Creatinine (0.66-1.25) mg/dL Osmolality 249 L* (280-301) mosm/kg Ur Random Sodium 193 H (30-90) mmol/L 02/22/17 02/22/17 02/23/17 Range/Units 17:24 21:50 01:52 Hct (39.0-53.0) % Sodium 124 L 125 L 127 L (137-145) mmol/L Chloride (98-107) mmol/L Creatinine (0.66-1.25) mg/dL Osmolality (280-301) mosm/kg Ur Random Sodium (30-90) mmol/L 02/23/17 02/23/17 Range/Units 05:20 05:20 Hct 38.3 L (39.0-53.0) % Sodium 128 L (137-145) mmol/L Chloride 95 L (98-107) mmol/L Creatinine 0.60 L (0.66-1.25) mg/dL Osmolality (280-301) mosm/kg Ur Random Sodium (30-90) mmol/L Microbiology - Last 24 Hours (Table) 02/20/17 15:06 Blood Culture - Preliminary Blood No Growth after 48 hours Assessment and Plan Plan: Impression. 1. Severe hyponatremia likely from SIADH, unusual feature is the very high urine sodium of 177 on 02/18/2017and repeat was 193 dated 02/22/2017 yesterday. I'm not sure whether he was on 3% saline at the time of this lab draw. Concurrent sodiums were in the 120s range. Additionally he has significant postural drop in blood pressure 156/71 supine with a heart rate of 72 and dropped down to 119/71 with heart rate of 74. The question then is off salt- losing nephropathy. Patient had normal TSH and cortisol. Creatinine is normal BuN is normal. Recommendation. Maintain 3% normal saline until sodium is about 1:30. We will stop and then released study him off of all IV. Obtain serum uric acid
[2017-02-23 10:28] LABS: Uric Acid 2.5 mg/dL (3.5-8.5)
--- NOTE | 2017-02-23 11:34 | P.CNPUL ---
History of Present Illness Consult date: 02/23/17 Requesting physician: Shan Ho Reason for consult: other (Critical care management) Chief complaint: Generalized weakness and fatigue. History of present illness: This is a very pleasant 86-year-old gentleman who presented to the emergency room on 02/20/2017 with complaints of generalized weakness and fatigue. He had just left the hospital on 02/19/2017 leaving AGAINST MEDICAL ADVICE after being admitted for severe hyponatremia secondary to SIADH. 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 He did lose his approximate 2 weeks ago however. His oral intake has been poor. His sodium was 117 on admission. He did require 3% normal saline and was transferred here to the intensive care unit for the same. He is seen today in consultation. Currently he is sitting up in the chair at the bedside. He is awake and alert in no acute distress. He states he is feeling better today and his current sodium is 131. He is on Declomycin 300 mg twice a day. The 3% normal saline can be discontinued and the plan is to move the patient out to the regular medical floor. He has no complaints of shortness of breath, cough or congestion. Chest x-ray showed no acute pulmonary process. Maintaining good O2 saturations in the 90s on room air. No dizziness or lightheadedness. Review of Systems 14 point review of system was conducted. All negative other than as mentioned in HPI. Past Medical History Past Medical History: No Reported History Additional Past Medical History / Comment(s): pagets disease, rt ear deaf, lt era wears hearing aid, shingles 10 years ago(2006) History of Any Multi-Drug Resistant Organisms: None Reported Past Surgical History: Tonsillectomy Past Anesthesia/Blood Transfusion Reactions: No Reported Reaction Past Psychological History: Depression Additional Psychological History / Comment(s): 2 weeks ago-has some sadness from this but not thoughts of harming self. lives alone in apt. uses a cane when up long distance. 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 Smoking Status: Never smoker Past Alcohol Use History: Occasional Past Drug Use History: None Reported - Past Family History Father Family Medical History: Hypertension Mother Family Medical History: Hypertension Medications and Allergies Home Medications Medication Instructions Recorded Confirmed Type No Known Home Medications [No 02/20/17 02/20/17 History Known Home Medications] Allergies Allergy/AdvReac Type Severity Reaction Status Date / Time No Known Allergies Allergy Verified 02/20/17 15:20 Physical Exam Vitals: Vital Signs Temp Pulse Pulse Pulse Resp BP BP 02/23/17 10:00 69 14 112/50 02/23/17 09:00 74 18 119/71 02/23/17 08:50 79 119/71 02/23/17 08:47 72 156/71 02/23/17 08:00 97.9 F 66 17 120/66 02/23/17 07:00 72 17 137/61 02/23/17 06:00 61 12 137/61 02/23/17 05:00 66 11 L 132/65 02/23/17 04:00 63 72 15 135/61 02/23/17 03:00 67 8 L 136/62 02/23/17 02:30 67 11 L 109/50 02/23/17 02:00 73 13 109/50 02/23/17 01:30 62 0 L 111/59 02/23/17 01:00 62 6 L 125/60 02/23/17 00:30 61 7 L 125/60 02/23/17 00:01 67 29 H 125/60 02/23/17 00:00 98.1 F 67 72 16 118/63 02/22/17 23:30 66 22 120/64 02/22/17 23:00 66 18 120/64 02/22/17 22:30 69 19 120/64 02/22/17 22:00 68 29 H 120/64 02/22/17 21:30 72 34 H 98/50 02/22/17 21:00 72 39 H 98/50 02/22/17 20:30 97.9 F 75 42 H 138/62 02/22/17 20:00 87 72 47 H 149/65 02/22/17 19:30 71 23 132/68 02/22/17 19:00 66 29 H 132/68 02/22/17 18:30 60 5 L 153/71 02/22/17 18:00 61 12 134/75 02/22/17 17:30 66 11 L 134/75 02/22/17 15:45 16 02/22/17 15:35 97.5 F L 72 16 133/60 Pulse Ox 06/03/17 10:00 95 02/23/17 09:00 94 L 02/23/17 08:50 02/23/17 08:47 02/23/17 08:00 94 L 02/23/17 07:00 98 02/23/17 06:00 95 02/23/17 05:00 94 L 02/23/17 04:00 97 02/23/17 03:00 95 02/23/17 02:30 95 02/23/17 02:00 94 L 02/23/17 01:30 95 02/23/17 01:00 88 L 02/23/17 00:30 94 L 02/23/17 00:01 93 L 02/23/17 00:00 96 02/22/17 23:30 95 02/22/17 23:00 97 02/22/17 22:30 96 02/22/17 22:00 97 02/22/17 21:30 96 02/22/17 21:00 97 02/22/17 20:30 98 02/22/17 20:00 97 02/22/17 19:30 97 02/22/17 19:00 98 02/22/17 18:30 97 02/22/17 18:00 97 02/22/17 17:30 99 02/22/17 15:45 02/22/17 15:35 97 Intake and Output 02/22/17 02/23/17 02/23/17 22:59 06:59 14:59 Intake Total 240 320 280 Output Total 1450 400 350 Balance -1210 -80 -70 Intake: Intake, IV Titration 240 320 160 Amount Sodium Chloride 3%( 240 Hypertonic) 500 ml @ 30 mls/hr IV .[id number] [facility] Rx #:[id number] Sodium Chloride 3%( 320 160 Hypertonic) 500 ml @ 40 mls/hr IV .[id number] [facility] Rx #:[id number] Oral 120 Output: Urine 1450 400 350 Other: Voiding Method Urinal Urinal Urinal # Voids 1 # Bowel Movements 0 Weight 82 kg GENERAL EXAM: Alert, active, comfortable in no apparent distress. HEAD: Normocephalic. Hard of hearing. EYES: Normal reaction of pupils, equal size. NOSE: Clear with pink turbinates. THROAT: No erythema or exudates. NECK: No masses, no JVD. CHEST: No chest wall deformity. LUNGS: Equal air entry with no crackles, wheeze, rhonchi or dullness. CVS: S1 and S2 normal with no audible mumurs, regular rhythm. ABDOMEN: No hepatosplenomegaly, normal bowel sounds, no guarding or rigidity. SPINE: No scoliosis or deformity SKIN: No rashes CENTRAL NERVOUS SYSTEM: No focal deficits, tone is normal in all 4 extremities. Extremities: There is no significant peripheral edema. No clubbing, no cyanosis. Peripheral pulses are intact. Results - Laboratory Findings CBC and BMP: 02/23/17 05:20 02/23/17 09:46 PT/INR, D-dimer PT 10.9 sec (9.0-12.0) 02/20/17 14:24 INR 1.1 (<1.1) 02/20/17 14:24 Abnormal lab findings: Abnormal Labs 02/20/17 02/20/17 02/21/17 14:24 14:24 08:57 RBC 4.07 L Hgb 12.4 L Hct 34.6 L 38.2 L Lymphocytes # 0.7 L 0.8 L Sodium 117 L* Chloride 85 L BUN 8 L Creatinine 0.59 L Glucose 104 H Osmolality Uric Acid Total Bilirubin 1.4 H Alkaline Phosphatase 211 H Total Protein 6.1 L Albumin 3.4 L Ur Random Sodium 02/21/17 02/21/17 02/22/17 08:57 14:57 05:33 RBC 4.29 L Hgb 12.9 L Hct 36.1 L Lymphocytes # Sodium 124 L 123 L Chloride 91 L BUN 6 L Creatinine 0.65 L Glucose 108 H Osmolality Uric Acid Total Bilirubin Alkaline Phosphatase Total Protein Albumin Ur Random Sodium 02/22/17 02/22/17 02/22/17 05:33 05:33 11:39 RBC Hgb Hct Lymphocytes # Sodium 122 L Chloride 90 L BUN 6 L Creatinine 0.60 L Glucose Osmolality 249 L* Uric Acid Total Bilirubin Alkaline Phosphatase Total Protein Albumin Ur Random Sodium 193 H 02/22/17 02/22/17 02/22/17 13:25 17:24 21:50 RBC Hgb Hct Lymphocytes # Sodium 122 L 124 L 125 L Chloride BUN Creatinine Glucose Osmolality Uric Acid Total Bilirubin Alkaline Phosphatase Total Protein Albumin Ur Random Sodium 02/23/17 02/23/17 02/23/17 01:52 05:20 05:20 RBC Hgb Hct 38.3 L Lymphocytes # Sodium 127 L 128 L Chloride 95 L BUN Creatinine 0.60 L Glucose Osmolality Uric Acid Total Bilirubin Alkaline Phosphatase Total Protein Albumin Ur Random Sodium 02/23/17 09:46 RBC Hgb Hct Lymphocytes # Sodium 131 L Chloride BUN Creatinine Glucose Osmolality Uric Acid 2.5 L Total Bilirubin Alkaline Phosphatase Total Protein Albumin Ur Random Sodium - Diagnostic Findings Chest x-ray: image reviewed Assessment and Plan Plan: Impression: #1 Hyponatremia secondary to SIADH. Initial sodium 117, rate requiring 3% normal saline with recovery currently sodium 131. He is on Declomycin 300 mg twice a day. #2 Recent hospitalization for the same, left AGAINST MEDICAL ADVICE. #3 Hard of hearing. #4 History of Paget's disease. #5 Depression secondary to recent loss of his . Plan: The patient was seen and evaluated by Dr. Choi. His chest x-ray and labs were reviewed. The patient has recovered from his hyponatremia up to 131. He'll be transferred out of the intensive care unit today. We'll continue to monitor his sodium levels closely. He is currently on Declomycin. He is educated regarding the importance of medication compliance and follow-up. We will continue to follow make further recommendations based on his clinical status. Time with Patient: Greater than 30
[2017-02-23 12:55] LABS: Potassium 4.2 mmol/L (3.5-5.1)
--- NOTE | 2017-02-23 18:41 | P.PN ---
Subjective HISTORY OF PRESENT ILLNESS: This is an 86-year-old gentleman who was recently in the hospital and left against medical advice after being diagnosed with hyponatremia that was symptomatic. 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 Patient, however, left AGAINST MEDICAL ADVICE. Patient does not have a significant past medical history. Patient apparently lost his spouse about 2 weeks ago. Has had some issues of feeling down including poor oral intake and lack of sleep as well. Patient was admitted again because was having similar symptoms overnight. Patient was given about a liter of crystalloids. This a.m. patient's serum sodium improved from 117 to 124. Today on evaluation, patient states to be feeling better, was able to ambulate without much difficulty. Denies having any headaches, blurry vision, seizure-like activity, nausea, vomiting, diarrhea, urinary urgency or frequency. Did tolerate his lunch in the afternoon. 02/22/2017 States to be doing well denies having any complaints. His generalized weakness is somewhat improved 02/23/17 In good spirits denies having headaches blurry vision, nausea, vomiting, diarrhea PHYSICAL EXAM: GENERALLY: Patient appears to be alert, oriented x3. HEENT: The pupils are equal and reactive to light and accommodation. HEART: S1, S2 present. No murmur appreciated. LUNGS: Good air entry. No wheezing or rhonchi noted. ABDOMINAL EXAM: Soft, nontender, no organomegaly appreciated. GENITOURINARY: No Rai in place. EXTREMITIES: Pulses can be palpated distally. Denies any tenderness on gross palpation. SKIN: On a gross skin exam does not appear to have any purpura or any skin rashes that were noted. NEUROLOGICALLY: Grossly cranial nerves 2-12 intact. No motor or sensory deficits noted. Objective - Vital Signs Vital signs: Vital Signs Temp 97.8 F 02/23/17 15:40 Pulse 76 02/23/17 16:00 Resp 16 02/23/17 16:00 BP 162/47 02/23/17 15:40 Pulse Ox 94 L 02/23/17 15:40 Intake & Output 02/22/17 02/23/17 02/23/17 18:59 06:59 18:59 Intake Total 480 440 700 Output Total 2070 700 500 Balance -1590 -260 200 Weight 82 kg 82 kg Intake: Intake, IV Titration 120 440 160 Amount Sodium Chloride 3%( 120 120 Hypertonic) 500 ml @ 30 mls/hr IV .[id number] [facility] Rx #:[id number] Sodium Chloride 3%( 320 160 Hypertonic) 500 ml @ 40 mls/hr IV .[id number] [facility] Rx #:[id number] Oral 360 540 Output: Urine 2070 700 500 Other: Voiding Method Urinal Urinal Urinal # Voids 1 1 # Bowel Movements 0 0 0 - Labs CBC & Chem 7: 02/23/17 05:20 02/23/17 12:27 Labs: Abnormal Lab Results - Last 24 Hours (Table) 02/22/17 02/23/17 02/23/17 Range/Units 21:50 01:52 05:20 Hct (39.0-53.0) % Sodium 125 L 127 L 128 L (137-145) mmol/L Chloride 95 L (98-107) mmol/L Creatinine 0.60 L (0.66-1.25) mg/dL Uric Acid (3.5-8.5) mg/dL 02/23/17 02/23/17 02/23/17 Range/Units 05:20 09:46 12:27 Hct 38.3 L (39.0-53.0) % Sodium 131 L 130 L (137-145) mmol/L Chloride (98-107) mmol/L Creatinine (0.66-1.25) mg/dL Uric Acid 2.5 L (3.5-8.5) mg/dL Microbiology - Last 24 Hours (Table) 02/20/17 15:06 Blood Culture - Preliminary Blood No Growth after 72 hours Assessment and Plan Plan: ASSESSMENT AND PLAN: 1. 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 2. Constipation. Plan Nephrology recs noted encourage ambulation uric acid low, consistent with SIADH Urine sodium elevated bowel regimen On demeclocyline
[2017-02-24 07:26] LABS: Basophils % (A) 1 %; CH 31.1; CHCM 36.4; Eosinophils # (A) 0.2 k/uL (0-0.7); Eosinophils % (A) 3 %; HCT 38.3 % (39.0-53.0); HDW 2.74; HGB 13.6 gm/dL (13.0-17.5); Luc # (Auto) 0.21; Luc % (Auto) 3; Lymphocytes # (A) 1.1 k/uL (1.0-4.8); Lymphocytes % (A) 19 %; MCH 30.5 pg (25.0-35.0); MCHC 35.6 g/dL (31.0-37.0); MCV 85.8 fL (80.0-100.0); Mean Platelet Volume 6.5; Monocytes # (A) 0.5 k/uL (0-1.0); Monocytes % (A) 8 %; Neutrophils % (A) 66 %; RBC 4.46 m/uL (4.30-5.90); RDW 13.1 % (11.5-15.5); WBC (Perox) 6.46
[2017-02-24 07:27] LABS: Anion Gap 8 mmol/L; Blood Urea Nitrogen 17 mg/dL (9-20); Calcium 9.3 mg/dL (8.4-10.2); Carbon Dioxide 27 mmol/L (22-30); Chloride 97 mmol/L (98-107); Glucose 96 mg/dL (74-99); Magnesium 2.1 mg/dL (1.6-2.3); Non-African American GFR(MDRD) >60 (>60 ml/min/1.73 sqM); Potassium 4.7 mmol/L (3.5-5.1); Sodium 132 mmol/L (137-145)
[2017-02-24] MEDS: DEMECLOCYCLINE 150 MG TAB PO SCH ×2 (10:41→22:02)
[2017-02-24] MEDS: PANTOPRAZOLE 40 MG/10 ML VIAL IV SCH (10:41)
[2017-02-24] MEDS: DOCUSATE 100 MG CAP PO SCH (10:41)
[2017-02-24] MEDS: SODIUM CHLORIDE TAB 1 GM TAB PO SCH (10:42)
[2017-02-24] MEDS: POLYETHYLENE GLYCOL 3350 17 GM POWD.PACK PO SCH (10:42)
--- NOTE | 2017-02-24 12:52 | P.PN ---
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 He has been treated with 3% saline. He is 3% saline was discontinued yesterday at 02/23/2017 and he was followed up on demeclocycline and salt tablets. His sodium improved to 1:30's since yesterday morning and multiple sodiums have been stable and the last one is 132 this morning. Uric acid was low at 2.5. Subjectively he is doing very well has no complaints at all. Denies any dizziness, headache fever chills cough shortness of breath nausea vomiting diarrhea. Appetite is fair. No abdominal pain. Should be noted that he was recently admitted and discharged AGAINST MEDICAL ADVICE for the same problem off hyponatremia. This is deemed to be fromdepression because of recent loss of his spouse. He has been seen by his with anxiety increased. He was not on any medications at home. Objective - Vital Signs Vital signs: Vital Signs Temp 98.1 F 02/24/17 07:00 Pulse 71 02/24/17 07:00 Resp 14 02/24/17 07:00 BP 128/67 02/24/17 07:30 Pulse Ox 96 02/24/17 07:00 Intake & Output 02/23/17 02/24/17 02/24/17 18:59 06:59 18:59 Intake Total 700 200 360 Output Total 500 300 Balance 200 -100 360 Weight 82 kg Intake: Intake, IV Titration 160 50 Amount Magnesium Sulfate-D5w Pmx 50 1 gm In Dextrose/Water 1 100ml.bag @ 100 mls/hr IVPB Q1H [facility] Rx#: [id number] Sodium Chloride 3%( 160 Hypertonic) 500 ml @ 40 mls/hr IV .[id number] [facility]ARA Rx #:[id number] Oral 540 150 360 Output: Urine 500 300 Other: Voiding Method Urinal # Voids 1 # Bowel Movements 0 On examination is awake alert oriented comfortable He's been walking around. HEENT exam no JVP neck is supple no facial asymmetry Lungs clear to auscultation percussion good air entry bilaterally Heart sounds are unremarkable for any murmur rub gallop. Abdomen soft nontender Extremity exam was no edema Neurologically awake alert oriented somewhat hard of hearing. No focal motor deficit. Was able to walk around - Labs CBC & Chem 7: 02/24/17 06:46 02/24/17 06:46 Labs: Abnormal Lab Results - Last 24 Hours (Table) 02/23/17 02/23/17 02/23/17 Range/Units 12:27 17:38 23:56 Hct (39.0-53.0) % Sodium 130 L 131 L 131 L (137-145) mmol/L Chloride (98-107) mmol/L 02/24/17 02/24/17 Range/Units 06:46 06:46 Hct 38.3 L (39.0-53.0) % Sodium 132 L (137-145) mmol/L Chloride 97 L (98-107) mmol/L Microbiology - Last 24 Hours (Table) 02/20/17 15:06 Blood Culture - Preliminary Blood No Growth after 72 hours Assessment and Plan Plan: Impression. 1. Severe hyponatremia likely from SIADH, unusual feature is the very high urine sodium of 177 on 02/18/2017and repeat was 193 dated 02/22/2017 I'm not sure whether he was on 3% saline at the time of this lab draw. Concurrent sodiums were in the 120s range. Additionally he has significant postural drop in blood pressure 156/71 supine with a heart rate of 72 and dropped down to 119/ 71 with heart rate of 74. 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 Off of 3% saline for more than 30 hours sodium has been nearly normal, 132 this morning. No orthostatic symptoms patient is able to walk. Patient had normal TSH and cortisol. Creatinine is normal BuN is normal. Recommendation. He could be discharged to be followed up in the office in the next 2-3 days. Repeat labs to be done tomorrow as an outpatient with stat results called to our office. Maintain 36 ounces fluid restriction, and he should be on high- protein diet
--- NOTE | 2017-02-24 17:54 | P.PN ---
Subjective HISTORY OF PRESENT ILLNESS: This is an 86-year-old gentleman who was recently in the hospital and left against medical advice after being diagnosed with hyponatremia that was symptomatic. 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 Patient, however, left AGAINST MEDICAL ADVICE. Patient does not have a significant past medical history. Patient apparently lost his spouse about 2 weeks ago. Has had some issues of feeling down including poor oral intake and lack of sleep as well. Patient was admitted again because was having similar symptoms overnight. Patient was given about a liter of crystalloids. This a.m. patient's serum sodium improved from 117 to 124. Today on evaluation, patient states to be feeling better, was able to ambulate without much difficulty. Denies having any headaches, blurry vision, seizure-like activity, nausea, vomiting, diarrhea, urinary urgency or frequency. Did tolerate his lunch in the afternoon. 02/22/2017 States to be doing well denies having any complaints. His generalized weakness is somewhat improved 02/23/17 In good spirits denies having headaches blurry vision, nausea, vomiting, diarrhea 02/24/17 doing well was able to ambulate without much difficulty no headaches, blurry vision, nausea, vomiting, diarrhea PHYSICAL EXAM: GENERALLY: Patient appears to be alert, oriented x3. HEENT: The pupils are equal and reactive to light and accommodation. HEART: S1, S2 present. No murmur appreciated. LUNGS: Good air entry. No wheezing or rhonchi noted. ABDOMINAL EXAM: Soft, nontender, no organomegaly appreciated. GENITOURINARY: No Rai in place. EXTREMITIES: Pulses can be palpated distally. Denies any tenderness on gross palpation. SKIN: On a gross skin exam does not appear to have any purpura or any skin rashes that were noted. NEUROLOGICALLY: Grossly cranial nerves 2-12 intact. No motor or sensory deficits noted. Objective - Vital Signs Vital signs: Vital Signs Temp 98.1 F 02/24/17 14:41 Pulse 78 02/24/17 14:41 Resp 16 02/24/17 14:41 BP 155/71 02/24/17 14:41 Pulse Ox 97 02/24/17 14:41 Intake & Output 02/23/17 02/24/17 02/24/17 18:59 06:59 18:59 Intake Total 700 200 600 Output Total 500 300 Balance 200 -100 600 Weight 82 kg Intake: Intake, IV Titration 160 50 Amount Magnesium Sulfate-D5w Pmx 50 1 gm In Dextrose/Water 1 100ml.bag @ 100 mls/hr IVPB Q1H [facility] Rx#: [id number] Sodium Chloride 3%( 160 Hypertonic) 500 ml @ 40 mls/hr IV .[id number] [facility] Rx #:[id number] Oral 540 150 600 Output: Urine 500 300 Other: Voiding Method Urinal # Voids 1 1 # Bowel Movements 0 0 - Labs CBC & Chem 7: 02/24/17 06:46 02/24/17 06:46 Labs: Abnormal Lab Results - Last 24 Hours (Table) 02/23/17 02/23/17 02/24/17 Range/Units 17:38 23:56 06:46 Hct 38.3 L (39.0-53.0) % Sodium 131 L 131 L (137-145) mmol/L Chloride (98-107) mmol/L 02/24/17 Range/Units 06:46 Hct (39.0-53.0) % Sodium 132 L (137-145) mmol/L Chloride 97 L (98-107) mmol/L Microbiology - Last 24 Hours (Table) 02/20/17 15:06 Blood Culture - Preliminary Blood No Growth after 96 hours Assessment and Plan Plan: ASSESSMENT AND PLAN: 1. 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 2. Constipation. Plan Nephrology recs noted encourage ambulation uric acid low, consistent with SIADH Urine sodium elevated bowel regimen leona brumfield pt apparently has discussed options at [facility] and [facility]. leona once case management is available
[2017-02-25 07:14] LABS: Potassium 4.5 mmol/L (3.5-5.1)
[2017-02-25] MEDS: POLYETHYLENE GLYCOL 3350 17 GM POWD.PACK PO SCH (08:19)
[2017-02-25] MEDS: DOCUSATE 100 MG CAP PO SCH (08:19)
[2017-02-25] MEDS: PANTOPRAZOLE 40 MG/10 ML VIAL IV SCH (08:19)
[2017-02-25] MEDS: SODIUM CHLORIDE TAB 1 GM TAB PO SCH (08:19)
[2017-02-25] MEDS: DEMECLOCYCLINE 150 MG TAB PO SCH (08:19)
[2017-02-25 08:27] VITALS: RESP 16
[2017-02-25 12:42] VITALS: BMI 25.2
[2017-02-25 15:06] VITALS: BP 175/79; PULSE 92; TEMP 98.1
--- NOTE | 2017-02-25 20:14 | P.DS ---
Providers Date of admission: 02/20/17 15:27 Attending physician: Najma Connell Consults: 02/22/17 08:14 Consult Physician Routine Consulting Provider: Lindsay Fitch Consult Reason/Comments: Hyponatremia Do you want consulting provider notified?: Yes 02/22/17 18:31 Consult Physician Routine Consulting Provider: Justo Choi Consult Reason/Comments: ICU management Do you want consulting provider notified?: Already Contacted Primary care physician: Stated None Hospital Course: HISTORY OF PRESENT ILLNESS: This is an 86-year-old gentleman who was recently in the hospital and left against medical advice after being diagnosed with hyponatremia that was symptomatic. 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 Patient, however, left AGAINST MEDICAL ADVICE. Patient does not have a significant past medical history. Patient apparently lost his spouse about 2 weeks ago. Has had some issues of feeling down including poor oral intake and lack of sleep as well. Patient was admitted again because was having similar symptoms overnight. Patient was given about a liter of crystalloids. This a.m. patient's serum sodium improved from 117 to 124. Today on evaluation, patient states to be feeling better, was able to ambulate without much difficulty. Denies having any headaches, blurry vision, seizure-like activity, nausea, vomiting, diarrhea, urinary urgency or frequency. Did tolerate his lunch in the afternoon. 02/22/2017 States to be doing well denies having any complaints. His generalized weakness is somewhat improved 02/23/17 In good spirits denies having headaches blurry vision, nausea, vomiting, diarrhea 02/24/17 doing well was able to ambulate without much difficulty no headaches, blurry vision, nausea, vomiting, diarrhea PHYSICAL EXAM: GENERALLY: Patient appears to be alert, oriented x3. HEENT: The pupils are equal and reactive to light and accommodation. HEART: S1, S2 present. No murmur appreciated. LUNGS: Good air entry. No wheezing or rhonchi noted. ABDOMINAL EXAM: Soft, nontender, no organomegaly appreciated. GENITOURINARY: No Rai in place. EXTREMITIES: Pulses can be palpated distally. Denies any tenderness on gross palpation. SKIN: On a gross skin exam does not appear to have any purpura or any skin rashes that were noted. NEUROLOGICALLY: Grossly cranial nerves 2-12 intact. No motor or sensory deficits noted. ASSESSMENT AND PLAN: 1. 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 2. Constipation. 3. Grief. appropriate, no suicidal or homicidal ideation APS was called previously. Deemed safe to go home dc home high protein diet fluid restriction Home with home care recommended follow up with Dr Modi Nephrology follow up Plan - Discharge Summary New Discharge Prescriptions: No Action No Known Home Medications [No Known Home Medications] Discharge Medication List No Known Home Medications [No Known Home Medications] 02/20/17 [History] Follow up Appointment(s)/Referral(s): Jack Swan MD [REFERRING] - 03/14/17 2:00 pm Lindsay Fitch MD [STAFF PHYSICIAN] - 1 Week (Office states they will call patient with appointment day and time.) [facility], [NON-STAFF] - 1 Week Patient Instructions/Handouts: High Protein Diet (DC), Hyponatremia (DC), Fluid Restriction (DC) Activity/Diet/Wound Care/Special Instructions: Labs to be drawn on 02/25/2017 and 02/28/2017 ambulation with walker follow-up as scheduled high protein diet Discharge Disposition: HOME WITH HOME HEALTH SERVICES
--- NOTE | 2017-02-25 22:09 | PN ---
Patient is seen for follow-up for hyponatremia secondary to SIADH. Sodium has improved. He is currently maintained on demeclocycline, sodium chloride tablets and fluid restriction. His sodium is now at 132 mEq/L. On examination, the patient is currently comfortable, awake. He is not in any acute distress. Blood pressure is 125/65, heart rate of 92 per minute. He is afebrile. Examination of the heart S1 and S2. Examination of the lungs: Bilateral breath sounds are heard. ABDOMEN: Soft, nontender. Examination of lower extremities shows no significant edema. [employer]ORDINATOR exam is grossly intact. Labs show sodium 132 today. Potassium was 4.5. ASSESSMENT: Euvolemic hyponatremia secondary to syndrome of inappropriate antidiuretic hormone secretion, currently improved. Patient is status post 3% saline. He is maintained on demeclocycline, fluid restriction and sodium chloride which was decreased to once a day. PLAN: Maintain fluid restriction. Check sodium today. Patient will most likely be discharged. He will need to follow up as outpatient in 2 to 3 days' time.
[2017-02-26] MEDS ORDERED: PANTOPRAZOLE 40 MG TABLET PO SCH (07:30)
== END 2017-02-25 17:11 | disposition home health service (06) | DRG 645 ==
LOC: EC 14:11 → 6SEL 15:27 → 6ICU 02-22 17:29 → 3SUR 02-23 11:30
PROVIDERS: ADMIT Hospitalist; ATTEND Hospitalist
DX: E22.2 Syndrome of inappropriate secretion of antidiuretic hormone (principal); F32.9 Major depressive disorder, single episode, unspecified; F43.20 Adjustment disorder, unspecified; K59.00 Constipation, unspecified; R05 Cough; G47.9 Sleep disorder, unspecified; F41.9 Anxiety disorder, unspecified; R53.1 Weakness; H91.93 Unspecified hearing loss, bilateral; Z82.49 Family history of ischemic heart disease and other diseases of the circulatory system; Z71.3 Dietary counseling and surveillance; Z87.39 Personal history of other diseases of the musculoskeletal system and connective tissue; Z86.19 Personal history of other infectious and parasitic diseases; Z97.4 Presence of external hearing-aid; Z91.19 Patient's noncompliance with other medical treatment and regimen
CPT/HCPCS: 36415; 71020; 80048; 80053; 81003; 82550; 82553; 83735; 83880; 83930; 83935; 84100; 84132; 84295; 84300; 84484; 84550; 85025; 85610; 85730; 87040